=== PATIENT | male | born 1965 | race African-American/Black ===

== ENCOUNTER 2016-04-21 13:05 | Emergency (ER) | payer MEDICARE, OTHER ==
[~2016-04-21] VITALS: Ht 165.1 cm; Wt 83.9 kg
--- NOTE | 2016-04-21 13:25 | Emergency Room Report ---
History of Present Illness General Chief Complaint: Lower Back Pain or Injury Source: Patient Present Illness HPI 50 YO male presents to the ED Pt. presents to the ED c/o right sided upper back pain that radiates down the right side of the back described as "soreness, and tightness" x 2 weeks. onset after lifting heavy objects. Denies trauma or fall. Patient denies incontinence or weakness/paresthesias of the lower extremities. Patient reports pain exacerbated upon bending forward. History of cancer recent spinal procedures. he denies nausea, vomiting, fevers, chills or erythema. Patient states pain is 10 out of 10 in severity and is not relieved by his narcotic pain medications. he denies midline back pain or tenderness. Allergies: Coded Allergies: No Known Allergies (Unverified , 04/21/16) Patient History Past Medical History: see triage record Past Surgical History: none Pertinent Family History: none Immunizations: UTD Reviewed Nursing Documentation: PMH: Agreed, PSxH: Agreed Nursing Documentation-PMH Past Medical History: No History, Except For Hx Hypertension: Yes Review of Systems All Other Systems: negative except mentioned in HPI Physical Exam Vital Signs Date Time Temp Pulse Resp B/P Pulse Ox O2 Delivery O2 Flow Rate FiO2 04/21/16 13:09 98.2 74 16 132/74 95 Room Air Sp02 EP Interpretation: reviewed, normal General Appearance: no apparent distress, alert, GCS 15, non-toxic Head: normocephalic, atraumatic Eyes: bilateral eye PERRL, bilateral eye normal inspection ENT: hearing grossly normal, normal pharynx, no angioedema, normal voice Neck: full range of motion, no meningismus, no bony tend, supple/symm/no masses Respiratory: chest non-tender, lungs clear, normal breath sounds, speaking full sentences Cardiovascular #1: regular rate, rhythm, no edema Gastrointestinal: non tender, soft, no guarding, no rebound Rectal: deferred Genitourinary: normal inspection, no CVA tenderness Musculoskeletal: back normal, gait/station normal, normal range of motion, no calf tenderness, tender - right TTP to the t-spine paraspinal musculature, no midline TTP, no obvious deformities, erythema, or increased temperature to palpation. pt. has FROM with pain upon forward flexion. Neurologic: alert, oriented x3, responsive, motor strength/tone normal, sensory intact, cerebellar normal, normal gait, speech normal, other - no incontinence Psychiatric: judgement/insight normal, memory normal, mood/affect normal, no suicidal/homicidal ideation Skin: normal color, no rash, warm/dry, well hydrated Lymphatic: no adenopathy Medical Decision Making PA Attestation Dr. Goldstein is my supervising Physician whom patient management has been discussed with. Diagnostic Impression: Primary Impression: Muscle spasm of back Additional Impression: Muscle strain ER Course Pt. presents to the ED c/o right sided upper back pain that radiates down the right side of the back described as "soreness, and tightness" x 2 weeks. onset after lifting heavy objects. Ddx considered but are not limited to Fracture, dislocation, contusion, epidural abscess, Sprain/Strain/Spasm Vital signs: are WNL, pt. is afebrile H&PE are most consistent with muscle spasm, ORDERS: none required at this time. ED INTERVENTIONS: -60mg Toradol IM DISCHARGE: At this time pt. is stable for d/c to home. Will provide printed patient care instructions, and any necessary prescriptions. Care plan and follow up instructions have been discussed with the patient prior to discharge. Last Vital Signs Date Time Temp Pulse Resp B/P Pulse Ox O2 Delivery O2 Flow Rate FiO2 04/21/16 13:09 98.2 74 16 132/74 95 Room Air Disposition: HOME, SELF-CARE Condition: Stable Scripts Back Brace (BACK STABILIZER) 1 Each Each 1 EACH MC for For Pain, #1 Prov: Stephanie Ricks P.A. 04/21/16 Docusate Sodium* (COLACE*) 100 Mg Capsule 100 MG ORAL THREE TIMES A DAY, #90 CAP Prov: Stephanie Ricks P.A. 04/21/16 Ibuprofen* (MOTRIN*) 600 Mg Tablet 600 MG ORAL THREE TIMES A DAY, #30 TAB 0 Refills Prov: Stephanie Ricks P.A. 04/21/16 Cyclobenzaprine Hcl* (FLEXERIL*) 10 Mg Tablet 10 MG ORAL THREE TIMES A DAY for 7 Days, #21 TAB Prov: Stephanie Ricks P.A. 04/21/16 Patient Instructions: Muscle Cramps and Spasms, [id number], Muscle Strain, [id number] Additional Instructions: Take medications as directed. Follow up with PCP in 3-5 days Return sooner to ED if new symptoms occur, or current symptoms become worse. Do not drink alcohol, drive, or operate heavy machinery while taking Flexeril as this may cause drowsiness. - Please note that this Emergency Department Report was dictated using [employer] technology software, occasionally this can lead to erroneous entry secondary to interpretation by the dictation equipment. Stephanie Ricks Apr 21, 2016 13:25
[2016-04-21] MEDS ORDERED: CYCLOBENZAPRINE10 MG ORAL (13:26)
[2016-04-21] MEDS ORDERED: IBUPROFEN600 MG ORAL (13:26)
[2016-04-21] MEDS ORDERED: Ketorolac 60mg Inj IM ONE (13:30)
[2016-04-21] MEDS ORDERED: COLACE100 MG ORAL (13:37)
[2016-04-21] MEDS ORDERED: BACK STABILIZE1 EACH MC (13:51)
[2016-04-21 13:54] VITALS: BP 132/74
[2016-04-21 13:58] VITALS: BP 132/74
== END 2016-04-21 14:00 | disposition home or self-care (01) ==
LOC: EMR 13:50
DX: M62.830 Muscle spasm of back (principal); S29.012A Strain of muscle and tendon of back wall of thorax, initial encounter; X50.0XXA Overexertion from strenuous movement or load, initial encounter; Y93.9 Activity, unspecified; Y92.9 Unspecified place or not applicable; I10 Essential (primary) hypertension; Z85.9 Personal history of malignant neoplasm, unspecified
CPT/HCPCS: 96372; 99284

== ENCOUNTER 2017-11-13 08:23 | Emergency (ER) | payer MEDICARE, OTHER ==
[~2017-11-13] VITALS: Ht 162.6 cm; Wt 81.2 kg
[~2017-11-13 08:23] MED LIST: BACK STABILIZE1 EACH MC; COLACE100 MG ORAL; CYCLOBENZAPRINE10 MG ORAL; IBUPROFEN600 MG ORAL
[2017-11-13 08:44] VITALS: BP 138/94
[2017-11-13] MEDS ORDERED: Ketorolac 60mg Inj IM ONE (08:45)
--- NOTE | 2017-11-13 09:06 | Emergency Room Report ---
History of Present Illness General Chief Complaint: Back Pain-No Injury Source: Patient Present Illness HPI This patient has a history of a back injury. He states that he occasionally gets severe back spasms and pain that last days. He states that 2 days ago he developed a recurrence of his back pain. He states that he was unable to get relief with his home medications. He denies new injury. He denies weakness. He denies tingling or numbness. He denies loss of bowel or bladder control. He denies fever or chills. He has no other complaints. Allergies: Coded Allergies: No Known Allergies (Unverified , 04/21/16) Patient History Past Medical History: see triage record, HTN Social History: Reports: smoking; Denies: alcohol use, drug use Reviewed Nursing Documentation: PMH: Agreed; PSxH: Agreed Nursing Documentation-PMH Past Medical History: No History, Except For Hx Hypertension: Yes Review of Systems All Other Systems: negative except mentioned in HPI Physical Exam Vital Signs Date Time Temp Pulse Resp B/P (MAP) Pulse Ox O2 Delivery O2 Flow Rate FiO2 11/13/17 08:40 97.5 58 18 138/94 98 Room Air 97.5 Sp02 EP Interpretation: reviewed, normal General Appearance: no apparent distress, alert, GCS 15, non-toxic Head: normocephalic, atraumatic Eyes: bilateral eye normal inspection, bilateral eye PERRL ENT: hearing grossly normal, normal pharynx, no angioedema, normal voice Neck: full range of motion, supple/symm/no masses Respiratory: chest non-tender, lungs clear, normal breath sounds, no respiratory distress, no retraction, no accessory muscle use, speaking full sentences Cardiovascular #1: regular rate, rhythm, no edema Gastrointestinal: normal bowel sounds, non tender, soft, non-distended, no guarding, no rebound Rectal: deferred Musculoskeletal: normal range of motion, non-tender, other - Antalgic gait. More comfortable in a flexed position. Neurologic: alert, oriented x3, responsive, motor strength/tone normal, sensory intact, speech normal Psychiatric: judgement/insight normal, memory normal, mood/affect normal, no suicidal/homicidal ideation Skin: normal color, no rash, warm/dry, well hydrated Medical Decision Making Diagnostic Impression: Primary Impression: Back pain ER Course This patient has a clinical presentation consistent with mechanical back pain. There are no red flags on physical exam. The patient denies any concerning features such as trauma, fevers, night sweats, history of malignancy, pain worse at night, IV drug abuse, urinary/fecal incontinence or retention, focal weakness or change in sensation, or refractory pain. Given these pertinent negatives in the history and physical exam an emergent cause of the back pain such as epidural abscess, metastasis to bone, cauda equina syndrome, and fracture is less likely. I also doubt emergent cardiovascular cause of back pain such as aortic dissection a ruptured abdominal aortic aneurysm given patient with equal pulses in all 4 extremities with no diastolic murmur or pulsatile abdominal mass. The patient was counseled that, though unlikely, the possibility of an emergent cause of back pain may still be present and that the patient should return immediately if symptoms persist or worsen. The symptoms are reproducible with movement. Patient had a benign evaluation and neurologic examination. No emergency etiology was identified. Last Vital Signs Date Time Temp Pulse Resp B/P (MAP) Pulse Ox O2 Delivery O2 Flow Rate FiO2 11/13/17 08:49 97.5 11/13/17 08:44 58 18 138/94 98 Room Air Status: improved Disposition: HOME, SELF-CARE Condition: Improved Referrals: [facility]ERR[facility] (PCP) Patient Instructions: Back Pain, Adult Camryn Rapp DO Nov 13, 2017 09:06
[2017-11-13] MEDS ORDERED: LIDODERM700 M1 TOPIC ×2 (09:08→09:23)
[2017-11-13] MEDS ORDERED: IBUPROFEN800 MG ORAL ×2 (09:08→09:23)
[2017-11-13] MEDS ORDERED: CYCLOBENZAPRINE10 MG ORAL ×2 (09:08→09:23)
[2017-11-13] MEDS ORDERED: ACETAMINOPHEN500 M5 PO (09:08)
[2017-11-13 09:22] VITALS: BP 138/94
[2017-11-13] MEDS ORDERED: ACETAMINOPHEN500 M3 ORAL (09:23)
== END 2017-11-13 09:22 | disposition home or self-care (01) ==
LOC: EMR 08:49
DX: M54.9 Dorsalgia, unspecified (principal); I10 Essential (primary) hypertension
CPT/HCPCS: 96372; 99283

== ENCOUNTER 2019-01-31 20:32 | Emergency (ER) | payer MEDICARE, OTHER ==
[~2019-01-31] VITALS: Ht 162.6 cm; Wt 82.6 kg
[~2019-01-31 20:32] MED LIST changes: +ACETAMINOPHEN500 M3 ORAL; +ACETAMINOPHEN500 M5 PO; +IBUPROFEN800 MG ORAL; +LIDODERM700 M1 TOPIC
[2019-01-31 20:45] VITALS: BP 159/91
--- NOTE | 2019-01-31 20:45 | NUR ---
ED Nurse Note: Addendum: 01/31/19 at 2055 by QLE pt presents to ED c/o bilat CP that radiates to the upper and lwoer back x 3 days. pt reports the px 12/01. pt has a h/o GERD but states the px feels different from his GERD px. pt took his antacid [employer] without relief of symptoms. pt is also nauseated but has not vomited. pt reprots not having a BM for 2 days and that his abd feels more distended than usual. pt was seen at [facility] earlier today where blood was drawn, and an EKG was done but he left before he was diagnosed.
[2019-01-31] MEDS ORDERED: AMLODIPINE-ATO1 EAC4 ORAL (20:55)
[2019-01-31] MEDS ORDERED: ASPIR 8181 MG ORAL (20:55)
[2019-01-31] MEDS ORDERED: CALCIUM + D SO1 EACH PO (20:55)
[2019-01-31] MEDS ORDERED: PANTOPRAZOLE SO40 MG ORAL (20:55)
[2019-01-31] MEDS ORDERED: OMEPRAZOLE40 M1 ORAL (20:55)
[2019-01-31] MEDS ORDERED: TRAMADOL HCL50 MG ORAL (20:55)
[2019-01-31] MEDS ORDERED: BENAZEPRIL-HCT1 EAC1 ORAL (20:55)
[2019-01-31] MEDS ORDERED: ATORVASTATIN CA40 MG ORAL (20:55)
[2019-01-31 21:10] LABS: BASOPHILS % (AUTO) 1.3 % (0.0-2.0); EOSINOPHILS % (AUTO) 1.8 % (0.0-3.0); HEMATOCRIT 42.5 % (42.0-52.0); HEMOGLOBIN 15.8 G/DL (14.2-18.0); LYMPHOCYTES % (AUTO) 34.6 % (20.0-45.0); MEAN CORPUSCULAR VOLUME 84 FL (80-99); MONOCYTES % (AUTO) 7.4 % (1.0-10.0); NEUTROPHILS % (AUTO) 54.9 % (45.0-75.0); PLATELET COUNT 219 K/UL (150-450); RED BLOOD COUNT 5.08 M/UL (4.70-6.10); RED CELL DISTRIBUTION WIDTH 10.8 % (11.6-14.8); WHITE BLOOD COUNT 13.4 K/UL (4.8-10.8)
[2019-01-31 21:17] LABS: INR 0.9 (0.9-1.1)
[2019-01-31 21:19] LABS: ANION GAP 8 mmol/L (5-15); BLOOD UREA NITROGEN 13 mg/dL (7-18); CALCIUM 9.2 MG/DL (8.5-10.1); CARBON DIOXIDE 31 MMOL/L (21-32); CHLORIDE 104 MMOL/L (98-107); CREATININE 1.1 MG/DL (0.55-1.30); POTASSIUM 3.9 MMOL/L (3.5-5.1); SODIUM 142 MMOL/L (136-145)
[2019-01-31] MEDS ORDERED: Omnipaque-300 100ml vial INJ PRN (21:30)
[2019-01-31 21:31] LABS: ALANINE AMINOTRANSFERASE 26 U/L (12-78); ALBUMIN/GLOBULIN RATIO 1.3 (1.0-2.7); ALKALINE PHOSPHATASE 82 U/L (46-116); ASPARTATE AMINO TRANSFERASE 14 U/L (15-37); BILIRUBIN,TOTAL 0.5 MG/DL (0.2-1.0)
--- NOTE | 2019-01-31 21:36 | NUR ---
ED Nurse Note: pt transported to CT via wheelchair, VSS, no acute distress noted at this time.
--- NOTE | 2019-01-31 21:49 | NUR ---
ED Nurse Note: pt returned from CT, fluids are running. pt verbalized "feeling beter." still c/o bilat back px but reports that being chronic px for him that he usually receives steroid injections for.
--- NOTE | 2019-01-31 22:50 | Diagnostic Imaging Report ---
Clinical Indication: Abdominal pain, constipation, difficulty urinating for 2 days Technique: No oral contrast utilized, per emergency room physician request IV administration nonionic contrast. Venous phase spiral acquisition obtained through the abdomen and pelvis. Multiplanar reconstructions were generated. Total dose length product 1151 mGycm. CTDIvol(s) 20 mGy. Dose reduction achieved using automated exposure control Comparison: none Findings: The appendix is normal. There is no evidence of colonic diverticulosis or diverticulitis. No small bowel distention. No free or loculated intraperitoneal gas or fluid is evident. The distal esophagus, stomach, duodenum are unremarkable. The liver demonstrates a few subcentimeter low-attenuation lesions which are too small to characterize. The gallbladder, bile ducts, pancreas, spleen, adrenals are unremarkable. There is a tiny accessory splenule. The kidneys demonstrate subcentimeter low-attenuation lesions bilaterally which are too small to characterize. No renal or ureteral calculi, hydronephrosis, or hydroureter. The prostate is enlarged. The bladder demonstrates equivocal mild wall thickening. No pelvic mass or adenopathy. No retroperitoneal or mesenteric mass or adenopathy. The included lung bases demonstrate posterior dependent atelectatic changes. The bones demonstrate degenerative spondylosis changes. Impression: Prostatomegaly Equivocal mild bladder wall thickening, probably artifact of under distention but mild cystitis changes also possible No definite acute process otherwise Subcentimeter low-attenuation liver and renal lesions, too small to characterize, most likely benign simple cysts. No further follow-up necessary Mild degenerative spondylosis, posterior dependent pulmonary atelectatic changes incidentally noted This agrees with the preliminary interpretation provided overnight by [facility]erad[facility] service. The CT scanner at [facility] is accredited by the [employer] and the scans are performed using protocols designed to limit radiation exposure to as low as reasonably achievable to attain images of sufficient resolution adequate for diagnostic evaluation.
[2019-01-31] MEDS ORDERED: COLACE100 MG ORAL (23:13)
[2019-01-31] MEDS ORDERED: MAGNESIUM CITR296 M1 PO (23:13)
[2019-01-31] MEDS ORDERED: RANITIDINE HCL150 MG ORAL (23:13)
[2019-01-31 23:15] VITALS: BP 159/91
--- NOTE | 2019-01-31 23:15 | NUR ---
ER DISCHARGE NOTE: Patient is cleared to be discharged per ERMD, pt is aox4, on room air, with stable vital signs. pt was given dc and prescription instructions, pt was able to verbalize understanding, pt id band and iv site removed without complications. pt is able to ambulate with steady gait. pt took all belongings.
--- NOTE | 2019-02-01 01:25 | Emergency Room Report ---
History of Present Illness General Chief Complaint: Chest Pain Source: Patient Present Illness HPI 53-year-old male presents ED for evaluation. Complaining of epigastric pain. started tonight. Pain is burning, 7 out of 10, radiating through the chest. States that he also feels nauseous. States that he has not had a bowel movement in the last 2 days. Denies abdominal pain. Denies any prior surgeries. No other aggravating relieving factors. Denies any other associated symptoms Allergies: Coded Allergies: No Known Allergies (Unverified , 04/21/16) Patient History Past Medical History: HTN, CVA/TIA Past Surgical History: none Pertinent Family History: none Social History: Denies: smoking, alcohol use, drug use Immunizations: UTD Reviewed Nursing Documentation: PMH: Agreed; PSxH: Agreed Nursing Documentation-PMH Hx Cardiac Problems: Yes - cholesterol Hx Hypertension: Yes Hx Cerebrovascular Accident: Yes Review of Systems All Other Systems: negative except mentioned in HPI Physical Exam Vital Signs Date Time Temp Pulse Resp B/P (MAP) Pulse Ox O2 Delivery O2 Flow Rate FiO2 01/31/19 20:35 97.9 85 16 159/91 (113) 96 Room Air Sp02 EP Interpretation: reviewed, normal General Appearance: no apparent distress, alert, GCS 15, non-toxic Head: normocephalic, atraumatic Eyes: bilateral eye normal inspection, bilateral eye PERRL ENT: hearing grossly normal, normal pharynx, no angioedema, normal voice Neck: full range of motion, supple/symm/no masses Respiratory: chest non-tender, lungs clear, normal breath sounds, speaking full sentences Cardiovascular #1: regular rate, rhythm, no edema Cardiovascular #2: 2+ carotid (R), 2+ carotid (L), 2+ radial (R), 2+ radial (L) , 2+ dorsalis pedis (R), 2+ dorsalis pedis (L) Gastrointestinal: normal bowel sounds, soft, non-distended, no guarding, no rebound, tenderness - epigastric Rectal: deferred Genitourinary: normal inspection, no CVA tenderness Musculoskeletal: back normal, normal range of motion, gait/station normal, non- tender Neurologic: alert, motor strength/tone normal, oriented x3, sensory intact, responsive, speech normal Psychiatric: judgement/insight normal, memory normal, mood/affect normal, no suicidal/homicidal ideation Reflexes: 3+ bicep (R), 3+ bicep (L), 3+ tricep (R), 3+ tricep (L), 3+ knee (R) , 3+ knee (L) Lymphatic: no adenopathy Medical Decision Making Diagnostic Impression: Primary Impression: Gastritis Qualified Codes: K29.00 - Acute gastritis without bleeding Additional Impression: Constipation Qualified Codes: K59.00 - Constipation, unspecified ER Course Hospital Course 53 yo M presents to ED c/o epigastric pain. no BM x 2 days Differential diagnosis includes- ACS, SBO, gastritis Clinical course Patient placed on stretcher. After initial history and physical I ordered labs , IV fluids, EKG, CXR, CT Labs - no leukocytosis, electrolytes ok, trop negative EKG - NSR, no acute ischemic changes interpreted by me CXR - no acute process CT scan shows no acute pathology there is significant fecal impaction on CT Discussed findings with patient. Will discharge to home. Troponin negative. Normal EKG. Vitals stable. Safe for discharge for close outpatient follow-up. States he has a PMD I feel this is a highly complex case requiring extensive working including EKG/ Rhythm strip, Xray/CT/US, Blood/urine lab work, repeat exams while in ED, and administration of strong opiates/narcotics for pain control, admission to hospital or close patient follow up. Diagnosis - gastritis, constipation Stable and discharged to home with Rx Colace, Mag citrate, zantac. Followup with PMD. Return to ED if symptoms recur or worsen Labs Test 01/31/19 20:45 White Blood Count 13.4 K/UL (4.8-10.8) Red Blood Count 5.08 M/UL (4.70-6.10) Hemoglobin 15.8 G/DL (14.2-18.0) Hematocrit 42.5 % (42.0-52.0) Mean Corpuscular Volume 84 FL (80-99) Mean Corpuscular Hemoglobin 31.1 PG (27.0-31.0) Mean Corpuscular Hemoglobin Concent 37.2 G/DL (32.0-36.0) Red Cell Distribution Width 10.8 % (11.6-14.8) Platelet Count 219 K/UL (150-450) Mean Platelet Volume 5.3 FL (6.5-10.1) Neutrophils (%) (Auto) 54.9 % (45.0-75.0) Lymphocytes (%) (Auto) 34.6 % (20.0-45.0) Monocytes (%) (Auto) 7.4 % (1.0-10.0) Eosinophils (%) (Auto) 1.8 % (0.0-3.0) Basophils (%) (Auto) 1.3 % (0.0-2.0) Prothrombin Time 9.4 SEC (9.30-11.50) Prothromb Time International Ratio 0.9 (0.9-1.1) Activated Partial Thromboplast Time 29 SEC (23-33) Sodium Level 142 MMOL/L (136-145) Potassium Level 3.9 MMOL/L (3.5-5.1) Chloride Level 104 MMOL/L (98-107) Carbon Dioxide Level 31 MMOL/L (21-32) Anion Gap 8 mmol/L (5-15) Blood Urea Nitrogen 13 mg/dL (7-18) Creatinine 1.1 MG/DL (0.55-1.30) Estimat Glomerular Filtration Rate > 60 mL/min (>60) Glucose Level 95 MG/DL (74-106) Calcium Level 9.2 MG/DL (8.5-10.1) Total Bilirubin 0.5 MG/DL (0.2-1.0) Aspartate Amino Transf (AST/SGOT) 14 U/L (15-37) Alanine Aminotransferase (ALT/SGPT) 26 U/L (12-78) Alkaline Phosphatase 82 U/L (46-116) Troponin I 0.000 ng/mL (0.000-0.056) Pro-B-Type Natriuretic Peptide 27 pg/mL (0-125) Total Protein 7.2 G/DL (6.4-8.2) Albumin 4.0 G/DL (3.4-5.0) Globulin 3.2 g/dL Albumin/Globulin Ratio 1.3 (1.0-2.7) Lipase 176 U/L (73-393) EKG Diagnostic Results Rate: normal Rhythm: NSR ST Segments: no acute changes ASA given to the pt in ED: No Rhythm Strip Diag. Results EP Interpretation: yes Rhythm: NSR, no PVC's, no ectopy Chest X-Ray Diagnostic Results Chest X-Ray Diagnostic Results : Chest X-Ray Ordered: Yes # of Views/Limited/Complete: 1 View Indication: Chest Pain EP Interpretation: Yes Interpretation: no consolidation, no effusion, no pneumothorax, no acute cardiopulmonary disease Impression: No acute disease Electronically Signed by: Electronically signed by Zac Prescott MD CT/MRI/US Diagnostic Results CT/MRI/US Diagnostic Results : Imaging Test Ordered: CT A/P Impression CT ABDOMEN & PELVIS With Contrast: Prostate is mildly enlarged. Evaluation of urinary bladder limited by underdistention and mild mural thickening/cystitis not excluded. Normal appendix. No free air or free fluid. No bowel obstruction. Atherosclerotic calcifications of aorta and its branches. Subcentimeter hypodensities in left lobe of liver, likely cysts. Renal hypodensities also likely represent cysts. Solid organs otherwise unremarkable Degenerative changes of lumbar spine. Last Vital Signs Date Time Temp Pulse Resp B/P (MAP) Pulse Ox O2 Delivery O2 Flow Rate FiO2 01/31/19 23:15 97.9 88 16 159/91 96 Room Air Status: improved Disposition: HOME, SELF-CARE Condition: Stable Scripts Magnesium Citrate (MAGNESIUM CITRATE) 296 Ml Solution 150 ML PO DAILY for 2 Days, #296 ML Prov: Zac Prescott MD 01/31/19 Docusate Sodium* (COLACE*) 100 Mg Capsule 100 MG ORAL THREE TIMES A DAY, #30 CAP Prov: Zac Prescott MD 01/31/19 Ranitidine Hcl* (ZANTAC*) 150 Mg Tablet 150 MG ORAL TWICE A DAY, #30 TAB Prov: Zac Prescott MD 01/31/19 Patient Instructions: Gastritis, Adult, [id number], Constipation, Adult, Easy -to-Read Zac Prescott MD Feb 01, 2019 01:25
--- NOTE | 2019-02-01 11:46 | Diagnostic Imaging Report ---
Indication: Chest pain Technique: One view of the chest Comparison: none Findings: There is some atelectasis at the left lung base. The lungs and pleural spaces are otherwise clear. The heart size is normal Impression: Minimal left basilar atelectasis. No acute process otherwise
--- NOTE | 2019-02-01 15:21 | Cardiology Report ---
APPROVED REPORT EKG Measurement Heart [id number] Normal sinus rhythm with sinus arrhythmia Normal ECG
== END 2019-01-31 23:15 | disposition home or self-care (01) ==
LOC: EMR 21:00
DX: K29.00 Acute gastritis without bleeding (principal); K59.00 Constipation, unspecified; E78.00 Pure hypercholesterolemia, unspecified; I10 Essential (primary) hypertension; Z86.73 Personal history of transient ischemic attack (TIA), and cerebral infarction without residual deficits
CPT/HCPCS: 36415; 71045; 74177; 80053; 83690; 83880; 84484; 85025; 85610; 85730; 93005; 96374; 96375; 99284; J2405; J7040; Q9967; S0028

== ENCOUNTER 2019-02-02 00:46 | Emergency (ER) | payer MEDICARE, OTHER ==
[~2019-02-02] VITALS: Ht 162.6 cm; Wt 82.6 kg
[~2019-02-02 00:46] MED LIST changes: +AMLODIPINE-ATO1 EAC4 ORAL; +ASPIR 8181 MG ORAL; +ATORVASTATIN CA40 MG ORAL; +BENAZEPRIL-HCT1 EAC1 ORAL; +CALCIUM + D SO1 EACH PO; +MAGNESIUM CITR296 M1 PO; +OMEPRAZOLE40 M1 ORAL; +PANTOPRAZOLE SO40 MG ORAL; +RANITIDINE HCL150 MG ORAL; +TRAMADOL HCL50 MG ORAL
[2019-02-02 00:53] VITALS: BP 126/87
--- NOTE | 2019-02-02 00:53 | NUR ---
ED Nurse Note: wALK-IN PATIENT PRESENTS WITH COMPLAINTS OF LEFT LOWER BACK PAIN INTERMITTENT AND SHARP. PATIENT WAS SEEN YESTERDAY, UNABL ETO GIVE A URINE SAMPLE, WATER REQUESTED, AND ACCOMODATED. WILL CONTINUE TO MONITOR FOR URINE SPECIMEN.
--- NOTE | 2019-02-02 01:05 | NUR ---
ED Nurse Note: ERMD at bedside.
[2019-02-02] MEDS ORDERED: Ketorolac 30mg Inj IV ONE (01:30)
--- NOTE | 2019-02-02 01:35 | Emergency Room Report ---
History of Present Illness General Chief Complaint: Pain Source: Medical Record Present Illness HPI Patient 53-year-old male presents after increased left-sided flank pain. Patient reports have increased pain with movement. Pain is intermittent in nature. He had recent ER visit yesterday. He had prior history of prostate disease. He had a recent endoscopy and was told that he had prior history of acid reflux. He is currently taking multiple medications. He denies any recent trauma.Patient denies any hematemesis or bloody stools. He denies any change in urination. Allergies: Coded Allergies: No Known Allergies (Unverified , 04/21/16) Patient History Past Medical History: see triage record Reviewed Nursing Documentation: PMH: Agreed Nursing Documentation-PMH Past Medical History: No History, Except For Hx Cardiac Problems: Yes - cholesterol Hx Hypertension: Yes Hx Cerebrovascular Accident: Yes Review of Systems All Other Systems: negative except mentioned in HPI Physical Exam Vital Signs Date Time Temp Pulse Resp B/P (MAP) Pulse Ox O2 Delivery O2 Flow Rate FiO2 02/02/19 00:53 97.9 81 20 126/87 (100) 98 Room Air Sp02 EP Interpretation: reviewed, normal General Appearance: normal inspection, well appearing, no apparent distress, alert, GCS 15 Head: atraumatic ENT: normal ENT inspection, hearing grossly normal, normal voice Neck: normal inspection, full range of motion, supple, no bony tend Respiratory: normal inspection, lungs clear, normal breath sounds, no respiratory distress, no retraction, no wheezing Cardiovascular #1: regular rate, rhythm, no edema Gastrointestinal: normal inspection, normal bowel sounds, non tender, soft, no guarding, no hernia Genitourinary: no CVA tenderness Musculoskeletal: normal inspection, decreased range of motion Neurologic: alert, motor strength/tone normal, gastroenterologist III-XII nml as tested, oriented x3, responsive, speech normal, normal inspection Psychiatric: normal inspection, judgement/insight normal, mood/affect normal Medical Decision Making Diagnostic Impression: Primary Impression: Low back pain ER Course Patient presented for low back pain. Differential diagnosis included but was not limited to herniated disc, cauda equina syndrome, abdominal aortic aneurysm , perforated ulcer, spinal epidural abscess, spinal stenosis, lumbar fracture, metastatic lesion, pyelonephritis. He had recent CT imaging which showed some evidence of degenerative changes to his lumbar spine. Prostate was also noted to be large. Urinalysis showed some slight hematuria. Patient was given prescription for symptomatic treatment. Patient was advised to recheck with primary care physician in 1-2 days. Patient to return for any worsening, pain, fever, incontinence or other concerns. Labs Test 02/02/19 01:30 White Blood Count 13.3 K/UL (4.8-10.8) Red Blood Count 5.51 M/UL (4.70-6.10) Hemoglobin 16.5 G/DL (14.2-18.0) Hematocrit 47.3 % (42.0-52.0) Mean Corpuscular Volume 86 FL (80-99) Mean Corpuscular Hemoglobin 29.9 PG (27.0-31.0) Mean Corpuscular Hemoglobin Concent 34.8 G/DL (32.0-36.0) Red Cell Distribution Width 12.2 % (11.6-14.8) Platelet Count 239 K/UL (150-450) Mean Platelet Volume 5.1 FL (6.5-10.1) Neutrophils (%) (Auto) 70.5 % (45.0-75.0) Lymphocytes (%) (Auto) 22.2 % (20.0-45.0) Monocytes (%) (Auto) 5.8 % (1.0-10.0) Eosinophils (%) (Auto) 1.0 % (0.0-3.0) Basophils (%) (Auto) 0.6 % (0.0-2.0) Urine Color Yellow Urine Appearance Clear Urine pH 5 (4.5-8.0) Urine Specific [place] 1.025 (1.005-1.035) Urine Protein Negative (NEGATIVE) Urine Glucose (UA) Negative (NEGATIVE) Urine Ketones Negative (NEGATIVE) Urine Blood 2+ (NEGATIVE) Urine Nitrite Negative (NEGATIVE) Urine Bilirubin Negative (NEGATIVE) Urine Urobilinogen Normal MG/DL (0.0-1.0) Urine Leukocyte Esterase Negative (NEGATIVE) Urine RBC 2-4 /HPF (0 - 0) Urine WBC 0 /HPF (0 - 0) Urine Squamous Epithelial Cells None /LPF (NONE/OCC) Urine Bacteria None /HPF (NONE) Sodium Level 137 MMOL/L (136-145) Potassium Level 3.9 MMOL/L (3.5-5.1) Chloride Level 101 MMOL/L (98-107) Carbon Dioxide Level 28 MMOL/L (21-32) Anion Gap 8 mmol/L (5-15) Blood Urea Nitrogen 12 mg/dL (7-18) Creatinine 1.1 MG/DL (0.55-1.30) Estimat Glomerular Filtration Rate > 60 mL/min (>60) Glucose Level 124 MG/DL (74-106) Calcium Level 9.7 MG/DL (8.5-10.1) Total Bilirubin 0.7 MG/DL (0.2-1.0) Aspartate Amino Transf (AST/SGOT) 14 U/L (15-37) Alanine Aminotransferase (ALT/SGPT) 23 U/L (12-78) Alkaline Phosphatase 77 U/L (46-116) Troponin I 0.006 ng/mL (0.000-0.056) Total Protein 7.7 G/DL (6.4-8.2) Albumin 3.8 G/DL (3.4-5.0) Globulin 3.9 g/dL Albumin/Globulin Ratio 1.0 (1.0-2.7) Lipase 174 U/L (73-393) Last Vital Signs Date Time Temp Pulse Resp B/P (MAP) Pulse Ox O2 Delivery O2 Flow Rate FiO2 02/02/19 00:53 97.9 86 20 126/87 98 Room Air Status: improved Disposition: HOME, SELF-CARE Condition: Stable Scripts Cephalexin* (KEFLEX*) 500 Mg Capsule 500 MG ORAL EVERY 6 HOURS, #28 CAP Prov: Live Morton MD 02/02/19 Diclofenac Sodium (VOLTAREN) 100 Gm Gel..gram. 5 GM TP DAILY for pain, #100 GM Prov: Live Morton MD 02/02/19 Live Morton MD Feb 02, 2019 01:35
[2019-02-02 01:46] LABS: APPEARANCE,URINE CLEAR; BASOPHILS % (AUTO) 0.6 % (0.0-2.0); BILIRUBIN, URINE NEGATIVE (NEGATIVE); GLUCOSE, URINE (UA) NEGATIVE (NEGATIVE); HEMATOCRIT 47.3 % (42.0-52.0); HEMOGLOBIN 16.5 G/DL (14.2-18.0); KETONES,URINE NEGATIVE (NEGATIVE); LEUKOCYTE ESTERASE ,URINE NEGATIVE (NEGATIVE); LYMPHOCYTES % (AUTO) 22.2 % (20.0-45.0); MEAN CORPUSCULAR VOLUME 86 FL (80-99); MONOCYTES % (AUTO) 5.8 % (1.0-10.0); NEUTROPHILS % (AUTO) 70.5 % (45.0-75.0); NITRITE,URINE NEGATIVE (NEGATIVE); PH,URINE 5 (4.5-8.0); PLATELET COUNT 239 K/UL (150-450); PROTEIN,URINE NEGATIVE (NEGATIVE); RED BLOOD COUNT 5.51 M/UL (4.70-6.10); RED CELL DISTRIBUTION WIDTH 12.2 % (11.6-14.8); UROBILINOGEN,URINE NORMAL MG/DL (0.0-1.0); WHITE BLOOD COUNT 13.3 K/UL (4.8-10.8)
[2019-02-02 01:49] LABS: COLOR,URINE YELLOW
[2019-02-02 01:56] LABS: ANION GAP 8 mmol/L (5-15); BLOOD UREA NITROGEN 12 mg/dL (7-18); CALCIUM 9.7 MG/DL (8.5-10.1); CARBON DIOXIDE 28 MMOL/L (21-32); CHLORIDE 101 MMOL/L (98-107); CREATININE 1.1 MG/DL (0.55-1.30); POTASSIUM 3.9 MMOL/L (3.5-5.1); SODIUM 137 MMOL/L (136-145)
--- NOTE | 2019-02-02 01:56 | NUR ---
ED Nurse Note: pATIENT REPORTS RELIEF OF PAIN AND HAS NO COMPLAINTS, PATIENT IS CONFIDENT THAT HE CAN SLEEP NOW.
[2019-02-02 02:01] LABS: ALANINE AMINOTRANSFERASE 23 U/L (12-78); ALBUMIN 3.8 G/DL (3.4-5.0); ALKALINE PHOSPHATASE 77 U/L (46-116); ASPARTATE AMINO TRANSFERASE 14 U/L (15-37); BILIRUBIN,TOTAL 0.7 MG/DL (0.2-1.0)
[2019-02-02] MEDS ORDERED: VOLTAREN100 G1 TP (02:19)
[2019-02-02] MEDS ORDERED: CEPHALEXIN500 MG ORAL (02:20)
[2019-02-02 02:27] VITALS: BP 126/87
[2019-02-03] MEDS ORDERED: VALIUM5 MG ORAL (15:11)
== END 2019-02-02 02:24 | disposition home or self-care (01) ==
LOC: EMR 01:30
DX: M54.5 Low back pain (principal); I10 Essential (primary) hypertension; Z86.73 Personal history of transient ischemic attack (TIA), and cerebral infarction without residual deficits
CPT/HCPCS: 36415; 80053; 81003; 83690; 84484; 85025; 96374; 99284; J1885

== ENCOUNTER 2019-02-03 12:16 | Emergency (ER) | payer MEDICARE, OTHER ==
[~2019-02-03] VITALS: Ht 175.3 cm; Wt 79.4 kg
[~2019-02-03 12:16] MED LIST changes: +CEPHALEXIN500 MG ORAL; +VOLTAREN100 G1 TP
--- NOTE | 2019-02-03 12:38 | NUR ---
ED Nurse Note: received pt from triage via wheelchair, pt c/o lower back pain for past five days, pt states he was sitting on the couch and watching tv when the pain started but denies any injuries or strenous activity. pt reports pain stays in lower back most time but occasionally has upper back pain as well, pt states he was in the ED x 2 but nothing is helping his pain and when pt went to go see the primary doctor, pcp recommended pt to go to ED. pt aA&ox4, gcs=15, pt vss, resp even and unlabored on RA, pt states he is able to ambulate w/ no assist normally but ever since pain started it is difficult to walk. will cont monitor. safety measures in place.
[2019-02-03 12:41] VITALS: BP 146/86
[2019-02-03] MEDS ORDERED: Ketorolac 30mg Inj IV ONE (13:15)
--- NOTE | 2019-02-03 13:35 | NUR ---
ED Nurse Note: Patient went to MRI.
[2019-02-03 13:39] LABS: BASOPHILS % (AUTO) 0.8 % (0.0-2.0); EOSINOPHILS % (AUTO) 0.9 % (0.0-3.0); HEMATOCRIT 44.4 % (42.0-52.0); HEMOGLOBIN 15.4 G/DL (14.2-18.0); LYMPHOCYTES % (AUTO) 27.4 % (20.0-45.0); MEAN CORPUSCULAR VOLUME 86 FL (80-99); MONOCYTES % (AUTO) 3.7 % (1.0-10.0); NEUTROPHILS % (AUTO) 67.1 % (45.0-75.0); PLATELET COUNT 243 K/UL (150-450); RED BLOOD COUNT 5.14 M/UL (4.70-6.10); RED CELL DISTRIBUTION WIDTH 11.8 % (11.6-14.8); WHITE BLOOD COUNT 12.3 K/UL (4.8-10.8)
--- NOTE | 2019-02-03 13:55 | Emergency Room Report ---
History of Present Illness General Chief Complaint: Pain Source: Patient Present Illness HPI This patient states that he has been to the emergency department 3 times this week. Initially he presented a few days ago for epigastric pain and constipation. He states he continues to be constipated although he did have one bowel movement and the pain in his abdomen has resolved, however, he was seen the next day for severe back pain. Pain comes in waves and is spasm-like. It is aggravated by any movement of his torso. It is located in his mid back. He denies weakness. He denies tingling or numbness. He denies loss of bowel or bladder control. He denies fever or chills. He states he does have a history of back pain but never to this level or severity. He was seen by his primary care physician today in the clinic and was sent to the emergency department for further evaluation. Allergies: Coded Allergies: No Known Allergies (Unverified , 04/21/16) Patient History Past Medical History: see triage record, HTN, GERD, other - HLP, Back pain Social History: Denies: smoking, alcohol use, drug use Reviewed Nursing Documentation: PMH: Agreed; PSxH: Agreed Nursing Documentation-PMH Past Medical History: No History, Except For Hx Cardiac Problems: Yes - cholesterol Hx Hypertension: Yes Hx Cerebrovascular Accident: Yes Review of Systems All Other Systems: negative except mentioned in HPI Physical Exam Vital Signs Date Time Temp Pulse Resp B/P (MAP) Pulse Ox O2 Delivery O2 Flow Rate FiO2 02/03/19 12:23 97.9 91 18 135/88 (104) 98 Room Air Sp02 EP Interpretation: reviewed, normal General Appearance: no apparent distress, alert, GCS 15, non-toxic Head: normocephalic, atraumatic Eyes: bilateral eye normal inspection, bilateral eye PERRL ENT: hearing grossly normal, normal pharynx, no angioedema, normal voice Neck: full range of motion, supple/symm/no masses Respiratory: chest non-tender, lungs clear, normal breath sounds, no respiratory distress, no retraction, no accessory muscle use, speaking full sentences Cardiovascular #1: regular rate, rhythm, no edema Gastrointestinal: normal bowel sounds, non tender, soft, non-distended, no guarding, no rebound Rectal: deferred Musculoskeletal: gait/station normal, tender - +exquistely TTP mid paraspinal m. Severe spasm with any movement. 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 The patient symptoms are severe and recurrent. He has been to the emergency department 3 times this week. His symptoms are unrelenting. The patient underwent MRI thoracic and lumbar spine given the severity of symptoms and lack of response to treatment. This showed no acute findings. I will place the patient on a laxative as requested for his constipation. I will also place him on Valium for muscle spasm. He has tramadol and so he can continue using the tramadol. He was educated that he may need to undergo rehab and that he should follow-up with his primary care physician. He indicated understanding and intention to do so. Laboratory Tests Test 02/03/19 13:25 White Blood Count 12.3 K/UL (4.8-10.8) H Red Blood Count 5.14 M/UL (4.70-6.10) Hemoglobin 15.4 G/DL (14.2-18.0) Hematocrit 44.4 % (42.0-52.0) Mean Corpuscular Volume 86 FL (80-99) Mean Corpuscular Hemoglobin 30.0 PG (27.0-31.0) Mean Corpuscular Hemoglobin Concent 34.8 G/DL (32.0-36.0) Red Cell Distribution Width 11.8 % (11.6-14.8) Platelet Count 243 K/UL (150-450) Mean Platelet Volume 5.0 FL (6.5-10.1) L Neutrophils (%) (Auto) 67.1 % (45.0-75.0) Lymphocytes (%) (Auto) 27.4 % (20.0-45.0) Monocytes (%) (Auto) 3.7 % (1.0-10.0) Eosinophils (%) (Auto) 0.9 % (0.0-3.0) Basophils (%) (Auto) 0.8 % (0.0-2.0) Sodium Level 139 MMOL/L (136-145) Potassium Level 3.7 MMOL/L (3.5-5.1) Chloride Level 101 MMOL/L (98-107) Carbon Dioxide Level 28 MMOL/L (21-32) Anion Gap 10 mmol/L (5-15) Blood Urea Nitrogen 20 mg/dL (7-18) H Creatinine 1.2 MG/DL (0.55-1.30) Estimate Glomerular Filtration Rate > 60 mL/min (>60) Glucose Level 156 MG/DL (74-106) H Calcium Level 9.1 MG/DL (8.5-10.1) Total Bilirubin 0.5 MG/DL (0.2-1.0) Aspartate Amino Transferase (AST) 13 U/L (15-37) L Alanine Aminotransferase (ALT) 26 U/L (12-78) Alkaline Phosphatase 73 U/L (46-116) Total Protein 7.3 G/DL (6.4-8.2) Albumin 3.6 G/DL (3.4-5.0) Globulin 3.7 g/dL Albumin/Globulin Ratio 1.0 (1.0-2.7) CT/MRI/US Diagnostic Results CT/MRI/US Diagnostic Results : Imaging Test Ordered: MRI T-spine, L-spine Impression No acute findings identified on the MRI of the thoracic and lumbar spine. See official report in the electronic medical record. Last Vital Signs Date Time Temp Pulse Resp B/P (MAP) Pulse Ox O2 Delivery O2 Flow Rate FiO2 02/03/19 12:41 97.9 84 18 146/86 100 Room Air Status: improved Disposition: HOME, SELF-CARE Condition: Improved Referrals: NON PHYSICIAN (PCP) Camryn Rapp DO Feb 03, 2019 13:55
[2019-02-03 14:05] LABS: ANION GAP 10 mmol/L (5-15); BLOOD UREA NITROGEN 20 mg/dL (7-18); CALCIUM 9.1 MG/DL (8.5-10.1); CARBON DIOXIDE 28 MMOL/L (21-32); CHLORIDE 101 MMOL/L (98-107); CREATININE 1.2 MG/DL (0.55-1.30); POTASSIUM 3.7 MMOL/L (3.5-5.1); SODIUM 139 MMOL/L (136-145)
[2019-02-03 14:08] LABS: ALANINE AMINOTRANSFERASE 26 U/L (12-78); ALBUMIN 3.6 G/DL (3.4-5.0); ALKALINE PHOSPHATASE 73 U/L (46-116); ASPARTATE AMINO TRANSFERASE 13 U/L (15-37); BILIRUBIN,TOTAL 0.5 MG/DL (0.2-1.0)
[2019-02-03 14:41] VITALS: BP 141/80
--- NOTE | 2019-02-03 14:41 | NUR ---
ED Nurse Note: Patient back from MRI.
--- NOTE | 2019-02-03 14:45 | NUR ---
ED Nurse Note: Patient feeling much better, states his pain is now 0/10.
--- NOTE | 2019-02-03 14:49 | Diagnostic Imaging Report ---
Indication: Pain in mid back pain, pain to left side of the hip and radiating down the left side Technique: Sagittal T1 and T2 fast spin echo, sagittal STIR, axial T1 and T2 fast spin-echo images of the lumbar spine Comparison: none Findings: Bony alignment is normal. Vertebral body heights are preserved. Vertebral marrow signal is normal. Conus medullaris terminates at the T12-L1 disc level. At L2-3, there is very mild degenerative disc narrowing and very mild circumferential annular bulge. No significant neural foraminal narrowing or spinal canal stenosis is demonstrated. At L3-4, there is mild degenerative disc narrowing. There is circumferential annular bulge. No significant spinal canal stenosis is demonstrated. This may result in mild neural compromise narrowing on the right. There is very mild bilateral facet arthrosis at this level. At L4-5, there is minimal degenerative disc narrowing. There is mild circumferential annular bulge. This does not result in any significant narrowing of the spinal canal. It may result in mild bilateral neural foraminal compromise there is bilateral facet arthrosis At the remaining disc levels, no significant disc bulge or protrusion, spinal stenosis, or neural foraminal stenosis. Included extra spinal soft tissues are unremarkable. Impression: No acute abnormality Mild degenerative change, as detailed on level by level basis above
--- NOTE | 2019-02-03 15:08 | Diagnostic Imaging Report ---
Indication: Low to mid back pain radiating to left side Technique: Sagittal T1 fast spin echo, sagittal T2 fast echo, sagittal STIR, axial T2 fast spin echo images were obtained through the thoracic spine Comparison: none Findings: Except for a few scattered Modic type II and minimal Modic type I degenerative changes, the vertebral marrow signal is normal. The bony alignment is normal. The vertebral body heights are preserved. The intrinsic cord signal is normal. At T2-3, there is mild central and right paracentral posterior disc protrusion. This does not significantly compromise the spinal canal or neural foramina. At T3-4, there is mild central and right paracentral posterior disc protrusion. This does not significantly compromise the spinal canal or the neural foramina. At T4-5, T5-6, and T6-7, there is mild degenerative disc narrowing. No significant disc bulge or protrusion or spinal stenosis At T7-8, there is mild central disc protrusion which does not compromise the spinal canal. The neural foramina are preserved At T8-9, there is right paracentral posterior disc protrusion which does not significant compromise the spinal canal or neural foramina. At the remaining disc levels, no significant disc bulge or protrusion, spinal stenosis, or neural foraminal stenosis. There is a small nerve root sleeve cysts of the left T11-12 nerve root Incidental finding is made of a small left renal cyst Impression: No acute bony trauma Minimal degenerative changes, as detailed on a level by level basis above
[2019-02-03] MEDS ORDERED: VALIUM5 MG ORAL (15:11)
[2019-02-03 15:34] VITALS: BP 136/80
--- NOTE | 2019-02-03 15:34 | NUR ---
ED Nurse Note: Patient cleared for discharge by Dr. Rapp. Patient AxO x 4, no s/s of acute distress, steady gait. Patient verbalized understanding of discharge and medication instructions. ID band removed. IV removed without complication.
== END 2019-02-03 15:34 | disposition home or self-care (01) ==
LOC: EMR 12:55
DX: M62.830 Muscle spasm of back (principal); K59.00 Constipation, unspecified; I10 Essential (primary) hypertension; K21.9 Gastro-esophageal reflux disease without esophagitis; Z86.73 Personal history of transient ischemic attack (TIA), and cerebral infarction without residual deficits
CPT/HCPCS: 36415; 72146; 72148; 80053; 85025; 96374; 99284; J1885

== ENCOUNTER 2019-03-25 23:28 | Inpatient (IN) | payer OTHER ==
[~2019-03-25] VITALS: Ht 162.6 cm; Wt 86.2 kg
[~2019-03-25 23:28] MED LIST changes: +VALIUM5 MG ORAL
[2019-03-25 23:50] VITALS: BP 111/65
--- NOTE | 2019-03-25 23:50 | NUR ---
ED Nurse Note: Pt walked into c/o flu like symptoms- cough and bodyache x2 days. Pt also complains of difficulty urinating for 3 days. Afebrile. Not in any distress. No SOB. Pt placed on solar power installer.
[2019-03-26] VITALS (7 sets, daily range): BP systolic 120–142; BP diastolic 73–107
--- NOTE | 2019-03-26 | NUR ---
ED Nurse Note: ERMD at bedside.
--- NOTE | 2019-03-26 00:07 | NUR ---
ED Nurse Note: IV line established. Blood and urine specime collected and sent to lab.
[2019-03-26] MEDS ORDERED: Acetaminophen 500mg (ES) tab ORAL ONE (00:15)
[2019-03-26 00:47] LABS: HEMATOCRIT 40.5 % (42.0-52.0); HEMOGLOBIN 15.3 G/DL (14.2-18.0); MEAN CORPUSCULAR VOLUME 86 FL (80-99); PLATELET COUNT 133 K/UL (150-450); RED BLOOD COUNT 4.74 M/UL (4.70-6.10); RED CELL DISTRIBUTION WIDTH 12.3 % (11.6-14.8)
[2019-03-26 00:50] LABS: APPEARANCE,URINE CLEAR; BILIRUBIN, URINE 1+ (NEGATIVE); COLOR,URINE BROWN; GLUCOSE, URINE (UA) NEGATIVE (NEGATIVE); KETONES,URINE 1+ (NEGATIVE); LEUKOCYTE ESTERASE ,URINE 3+ (NEGATIVE); NITRITE,URINE POSITIVE (NEGATIVE); PH,URINE 5 (4.5-8.0); PROTEIN,URINE 3+ (NEGATIVE); UROBILINOGEN,URINE 4 MG/DL (0.0-1.0)
[2019-03-26 00:55] LABS: WHITE BLOOD COUNT 23.4 K/UL (4.8-10.8)
[2019-03-26 00:57] LABS: ANION GAP 11 mmol/L (5-15); BLOOD UREA NITROGEN 12 mg/dL (7-18); CALCIUM 8.5 MG/DL (8.5-10.1); CARBON DIOXIDE 28 MMOL/L (21-32); CHLORIDE 98 MMOL/L (98-107); CREATININE 1.2 MG/DL (0.55-1.30); POTASSIUM 3.3 MMOL/L (3.5-5.1); SODIUM 137 MMOL/L (136-145)
--- NOTE | 2019-03-26 01:00 | Diagnostic Imaging Report ---
EXAM: XR Chest, 1 View CLINICAL HISTORY: COUGH TECHNIQUE: Frontal view of the chest. COMPARISON: 01/31/2019. FINDINGS: Lungs: Bibasilar linear atelectasis. Cannot exclude mild superimposed infiltrates. Pleural space: Unremarkable. No pneumothorax. Heart: Unremarkable. No cardiomegaly. Mediastinum: Unremarkable. Bones/joints: Unremarkable. IMPRESSION: Bibasilar linear atelectasis. Cannot exclude mild superimposed infiltrates.
[2019-03-26 01:07] LABS: ALANINE AMINOTRANSFERASE 22 U/L (12-78); ALBUMIN 3.1 G/DL (3.4-5.0); ALBUMIN/GLOBULIN RATIO 0.8 (1.0-2.7); ALKALINE PHOSPHATASE 62 U/L (46-116); ASPARTATE AMINO TRANSFERASE 14 U/L (15-37)
--- NOTE | 2019-03-26 01:20 | Emergency Room Report ---
History of Present Illness General Chief Complaint: Flu Like Symptoms Source: Patient Present Illness HPI 53-year-old male, history of hypertension hyperlipidemia presents with cough, fever/chills x2 days no aggravating leaving factors severity is moderate, constant, patient also reports some shortness of breath, body aches, patient presents for evaluation Allergies: Coded Allergies: No Known Allergies (Unverified , 04/21/16) Patient History Past Medical History: see triage record Reviewed Nursing Documentation: PMH: Agreed; PSxH: Agreed Nursing Documentation-PMH Hx Cardiac Problems: Yes - cholesterol Hx Hypertension: Yes Hx Cerebrovascular Accident: Yes Review of Systems All Other Systems: negative except mentioned in HPI Physical Exam Vital Signs Date Time Temp Pulse Resp B/P (MAP) Pulse Ox O2 Delivery O2 Flow Rate FiO2 03/25/19 23:45 99.3 123 16 111/65 (80) 98 Room Air Sp02 EP Interpretation: reviewed, normal General Appearance: well appearing, no apparent distress, alert Head: normocephalic, atraumatic Eyes: bilateral eye PERRL, bilateral eye EOMI ENT: uvula midline, dry mucus membranes Neck: supple, thyroid normal, supple/symm/no masses Respiratory: lungs clear, no respiratory distress, no retraction, no accessory muscle use Cardiovascular #1: normal peripheral pulses, no edema, no gallop, no murmur, tachycardia Gastrointestinal: non tender, soft, no guarding, no rebound Musculoskeletal: normal inspection Neurologic: alert, oriented x3 Psychiatric: mood/affect normal Skin: no rash, warm/dry Medical Decision Making Diagnostic Impression: Primary Impression: Leukocytosis Qualified Codes: D72.829 - Elevated white blood cell count, unspecified Additional Impression: UTI (urinary tract infection) Qualified Codes: N30.01 - Acute cystitis with hematuria ER Course 53-year-old male presents with fever/chills, tachycardia, differential diagnosis includes pneumonia, influenza, sepsis Patient with dry mucous membranes, will rehydrate with fluids, patient also found to have superimposed infiltrates bilaterally, will start ceftriaxone, azithromycin, patient also with a large leukocytosis will admit patient for pneumonia and treatment Patient found to have a UTI Patient given 2 L NS, patient admitted to Dr. Perez Laboratory Tests Test 03/26/19 00:15 White Blood Count 23.4 K/UL (4.8-10.8) *H Red Blood Count 4.74 M/UL (4.70-6.10) Hemoglobin 15.3 G/DL (14.2-18.0) Hematocrit 40.5 % (42.0-52.0) L Mean Corpuscular Volume 86 FL (80-99) Mean Corpuscular Hemoglobin 32.2 PG (27.0-31.0) H Mean Corpuscular Hemoglobin Concent 37.7 G/DL (32.0-36.0) H Red Cell Distribution Width 12.3 % (11.6-14.8) Platelet Count 133 K/UL (150-450) L Mean Platelet Volume 6.2 FL (6.5-10.1) L Neutrophils (%) (Auto) % (45.0-75.0) Lymphocytes (%) (Auto) % (20.0-45.0) Monocytes (%) (Auto) % (1.0-10.0) Eosinophils (%) (Auto) % (0.0-3.0) Basophils (%) (Auto) % (0.0-2.0) Differential Total Cells Counted 100 Neutrophils % (Manual) 84 % (45-75) H Lymphocytes % (Manual) 10 % (20-45) L Monocytes % (Manual) 5 % (1-10) Eosinophils % (Manual) 0 % (0-3) Basophils % (Manual) 1 % (0-2) Band Neutrophils 0 % (0-8) Platelet Estimate Decreased L Platelet Morphology Normal Urine Color Brown Urine Appearance Clear Urine pH 5 (4.5-8.0) Urine Specific [place] 1.025 (1.005-1.035) Urine Protein 3+ (NEGATIVE) H Urine Glucose (UA) Negative (NEGATIVE) Urine Ketones 1+ (NEGATIVE) H Urine Blood 5+ (NEGATIVE) H Urine Nitrite Positive (NEGATIVE) H Urine Bilirubin 1+ (NEGATIVE) H Urine Ictotest Negative (NEGATIVE) Urine Urobilinogen 4 MG/DL (0.0-1.0) H Urine Leukocyte Esterase 3+ (NEGATIVE) H Urine RBC 15-20 /HPF (0 - 0) H Urine WBC Tntc /HPF (0 - 0) H Urine Squamous Epithelial Cells Occasional /LPF Urine Bacteria Few /HPF (NONE) Urine Mucus Few /LPF (NONE/OCC) H Sodium Level 137 MMOL/L (136-145) Potassium Level 3.3 MMOL/L (3.5-5.1) L Chloride Level 98 MMOL/L (98-107) Carbon Dioxide Level 28 MMOL/L (21-32) Anion Gap 11 mmol/L (5-15) Blood Urea Nitrogen 12 mg/dL (7-18) Creatinine 1.2 MG/DL (0.55-1.30) Estimate Glomerular Filtration Rate > 60 mL/min (>60) Glucose Level 139 MG/DL (74-106) H Lactic Acid Level 1.10 mmol/L (0.4-2.0) Calcium Level 8.5 MG/DL (8.5-10.1) Total Bilirubin 1.0 MG/DL (0.2-1.0) Aspartate Amino Transferase (AST) 14 U/L (15-37) L Alanine Aminotransferase (ALT) 22 U/L (12-78) Alkaline Phosphatase 62 U/L (46-116) Troponin I 0.000 ng/mL (0.000-0.056) Pro-B-Type Natriuretic Peptide 184 pg/mL (0-125) H Total Protein 7.0 G/DL (6.4-8.2) Albumin 3.1 G/DL (3.4-5.0) L Globulin 3.9 g/dL Albumin/Globulin Ratio 0.8 (1.0-2.7) L Microbiology Date/Time Source Procedure Growth Status 03/26/19 00:15 Nasal Nares - Final Complete 03/26/19 00:15 Nasal Nares - Final Complete EKG Diagnostic Results EKG Time: 00:24 EP Interpretation: Sinus tachycardia, rate 109, QTc 441, normal axis no acute ST elevations Rhythm Strip Diag. Results Rhythm Strip Time: 01:20 EP Interpretation: yes Rate: 97 Rhythm: NSR, no PVC's, no ectopy Chest X-Ray Diagnostic Results Chest X-Ray Diagnostic Results : Chest X-Ray Ordered: Yes # of Views/Limited/Complete: 1 View Indication: Shortness of Breath EP Interpretation: Yes Interpretation: other - Bilateral consolidations Impression: Other - Bilateral pneumonia Electronically Signed by: Nate Tony MD Last Vital Signs Date Time Temp Pulse Resp B/P (MAP) Pulse Ox O2 Delivery O2 Flow Rate FiO2 03/26/19 01:01 99.3 03/25/19 23:50 123 16 111/65 98 Room Air Disposition: ADMITTED INPATIENT Condition: Stable Nate Tony MD Mar 26, 2019 01:20
[2019-03-26] MEDS ORDERED: cefTRIAXone 1 GM in NS 55 ML IVPB ONE (01:30)
[2019-03-26] MEDS ORDERED: Azithromycin 250mg tab ORAL ONE (01:30)
[2019-03-26] MEDS ORDERED: Tamsulosin 0.4mg cap ORAL ONE (03:15)
--- NOTE | 2019-03-26 04:16 | NUR ---
ED Nurse Note: Report given to Rolo SMITH from [facility].
--- NOTE | 2019-03-26 04:20 | NUR ---
TRANSFER TO FLOOR: Patient transferred to Medr unit. Report given to Rolo SMITH. Pt alert and oriented, verbally responsive. Not in any distress. Afebrile. Sinus rhythm. IV line on right AC 20g patent and intact. On NS 1L patent and infusing well. Med recon done. No skin issues. All belongings sent with the patient.
--- NOTE | 2019-03-26 04:30 | NUR ---
NURSE NOTES: received patient per chuy accompanied by er staff. with iv line on the right ac, saline lock. belongings on the bedside patient is complaining of not able to urinate. bladder scan done with noted 600 ml of urine. oriented to room set up. bed locked and in lowest position. call light and light button within easy reach. called dr. allen for admission orders. awaiting for orders. charge nurse made aware.
--- NOTE | 2019-03-26 05:30 | NUR ---
NURSE NOTES: paged dr. allen again awaiting for orders. dr. english ordered to insert bustos cath. went to the room and mary and tried to insert a catheter. unable to insert. with noted whitish to yellowish thick secretion on the tip of the catheter.
--- NOTE | 2019-03-26 06:30 | NUR ---
NURSE NOTES; tried to insert with other staff, still unable to insert with the same noted secretion on the tip of the catheter. charge nurse made aware. paged [facility] awaiting for orders.
--- NOTE | 2019-03-26 06:41 | Consultation ---
History of Present Illness General Chief Complaint: Flu Like Symptoms Present Illness Allergies: Coded Allergies: No Known Allergies (Unverified , 04/21/16) Medication History Scheduled Amlodipine-Atorvastatin 10-20 Mg (Amlodipine-Atorvastatin 10-20 Mg), 1 TAB ORAL DAILY, (Reported) Aspirin* (Aspir 81*), 81 MG ORAL DAILY, (Reported) Atorvastatin Calcium* (Atorvastatin Calcium*), 40 MG ORAL BEDTIME, (Reported) Benazepril/Hydrochlorothiazide 20-12.5 Mg Tab (Benazepril-Hctz 20-12.5 Mg Tab), 1 TAB ORAL DAILY, (Reported) Cephalexin* (Keflex*), 500 MG ORAL EVERY 6 HOURS Diclofenac Sodium (Voltaren), 5 GM TP DAILY Docusate Sodium* (Colace*), 100 MG ORAL THREE TIMES A DAY Magnesium Citrate (Magnesium Citrate), 150 ML PO DAILY Omeprazole (Omeprazole), 40 MG ORAL DAILY, (Reported) Pantoprazole* (Pantoprazole*), 40 MG ORAL DAILY, (Reported) Ranitidine Hcl* (Zantac*), 150 MG ORAL TWICE A DAY Scheduled PRN Diazepam* (Valium*), 5 MG ORAL TID PRN for Back pain Tramadol Hcl* (Ultram*), 50 MG ORAL Q6H PRN for For Pain, (Reported) Miscellaneous Medications Ca Carbonate/Vitamin D3/Vit K (Calcium + D Soft Chewable Tab), Unknown Dose PO, (Reported) Patient History Healthcare decision maker Resuscitation status Full Code Advanced Directive on File Physical Exam Last 24 Hour Vital Signs Date Time Temp Pulse Resp B/P (MAP) Pulse Ox O2 Delivery O2 Flow Rate FiO2 03/26/19 05:22 Room Air 03/26/19 04:20 98.6 76 23 122/73 98 Room Air 03/26/19 04:20 98.6 76 23 122/73 98 Room Air 03/26/19 02:17 97.8 89 22 120/73 97 Room Air 03/26/19 01:01 99.3 03/26/19 01:01 99.3 03/25/19 23:50 99.3 123 16 111/65 98 Room Air 03/25/19 23:50 123 16 Room Air 03/25/19 23:45 99.3 123 16 111/65 (80) 98 Room Air Intake and Output 03/25/19 03/26/19 19:00 07:00 Intake Total 5055 ml Balance 5055 ml Intake IV Total 5055 ml # Voids 2 Laboratory Tests Test 03/26/19 00:15 White Blood Count 23.4 K/UL (4.8-10.8) *H Red Blood Count 4.74 M/UL (4.70-6.10) Hemoglobin 15.3 G/DL (14.2-18.0) Hematocrit 40.5 % (42.0-52.0) L Mean Corpuscular Volume 86 FL (80-99) Mean Corpuscular Hemoglobin 32.2 PG (27.0-31.0) H Mean Corpuscular Hemoglobin Concent 37.7 G/DL (32.0-36.0) H Red Cell Distribution Width 12.3 % (11.6-14.8) Platelet Count 133 K/UL (150-450) L Mean Platelet Volume 6.2 FL (6.5-10.1) L Neutrophils (%) (Auto) % (45.0-75.0) Lymphocytes (%) (Auto) % (20.0-45.0) Monocytes (%) (Auto) % (1.0-10.0) Eosinophils (%) (Auto) % (0.0-3.0) Basophils (%) (Auto) % (0.0-2.0) Differential Total Cells Counted 100 Neutrophils % (Manual) 84 % (45-75) H Lymphocytes % (Manual) 10 % (20-45) L Monocytes % (Manual) 5 % (1-10) Eosinophils % (Manual) 0 % (0-3) Basophils % (Manual) 1 % (0-2) Band Neutrophils 0 % (0-8) Platelet Estimate Decreased L Platelet Morphology Normal Urine Color Brown Urine Appearance Clear Urine pH 5 (4.5-8.0) Urine Specific [place] 1.025 (1.005-1.035) Urine Protein 3+ (NEGATIVE) H Urine Glucose (UA) Negative (NEGATIVE) Urine Ketones 1+ (NEGATIVE) H Urine Blood 5+ (NEGATIVE) H Urine Nitrite Positive (NEGATIVE) H Urine Bilirubin 1+ (NEGATIVE) H Urine Ictotest Negative (NEGATIVE) Urine Urobilinogen 4 MG/DL (0.0-1.0) H Urine Leukocyte Esterase 3+ (NEGATIVE) H Urine RBC 15-20 /HPF (0 - 0) H Urine WBC Tntc /HPF (0 - 0) H Urine Squamous Epithelial Cells Occasional /LPF Urine Bacteria Few /HPF (NONE) Urine Mucus Few /LPF (NONE/OCC) H Sodium Level 137 MMOL/L (136-145) Potassium Level 3.3 MMOL/L (3.5-5.1) L Chloride Level 98 MMOL/L (98-107) Carbon Dioxide Level 28 MMOL/L (21-32) Anion Gap 11 mmol/L (5-15) Blood Urea Nitrogen 12 mg/dL (7-18) Creatinine 1.2 MG/DL (0.55-1.30) Estimat Glomerular Filtration Rate > 60 mL/min (>60) Glucose Level 139 MG/DL (74-106) H Lactic Acid Level 1.10 mmol/L (0.4-2.0) Calcium Level 8.5 MG/DL (8.5-10.1) Total Bilirubin 1.0 MG/DL (0.2-1.0) Aspartate Amino Transf (AST/SGOT) 14 U/L (15-37) L Alanine Aminotransferase (ALT/SGPT) 22 U/L (12-78) Alkaline Phosphatase 62 U/L (46-116) Troponin I 0.000 ng/mL (0.000-0.056) Pro-B-Type Natriuretic Peptide 184 pg/mL (0-125) H Total Protein 7.0 G/DL (6.4-8.2) Albumin 3.1 G/DL (3.4-5.0) L Globulin 3.9 g/dL Albumin/Globulin Ratio 0.8 (1.0-2.7) L Microbiology Date/Time Source Procedure Growth Status 03/26/19 00:15 Nasal Nares - Final Complete 03/26/19 00:15 Nasal Nares - Final Complete Height (Feet): 5 Height (Inches): 4.00 Weight (Pounds): 192 Assessment/Plan Assessment/Plan: Hematology Consultation REQ : Master Marinelli RFC: Leukocytosis, Anemia DOS: 03/26/2019 ID 53-year-old male, history of hypertension hyperlipidemia presents with cough, fever/chills x2 days no aggravating leaving factors severity is moderate, constant, patient also reports some shortness of breath, body aches, patient presents for evaluation. Labs have been reviewed, and at this time has severe urinary retention, may require a bustos to be placed. Allergies: No Known Allergies (Unverified , 04/21/16) Past Medical History: see triage record, hx of CVA Surgical hx: right leg saw+++ accident Reviewed Nursing Documentation: PMH: Agreed; PSxH: Agreed Nursing Documentation-PMH Hx Cardiac Problems: Yes - cholesterol Hx Hypertension: Yes Hx Cerebrovascular Accident: Yes Social hx: single, has 2 kids, used to work in construction, hx of tobacco use in the past, no alcohol or drugs Review of Systems All Other Systems: negative except mentioned in HPI Physical Exam General: well appearing, no apparent distress, alert Neck: supple, thyroid normal, supple/symm/no masses Respiratory: lungs clear, no respiratory distress CV: normal peripheral pulses, no edema, no gallop Gastrointestinal: non tender, soft, no guarding, no rebound Musculoskeletal: normal inspection Neurologic: alert, oriented x3 Psychiatric: mood/affect normal Skin: no rash, warm/dry Labs: noted Imaging: reviewed Assessment and Recs # Leukocytosis -- likely is related to urinary obstruction, uti --> has been started on abx --> as per ID care --> likely needs bustos # Thrombocytopenia likely due to underlying infection --> hepatitis and hiv have been ordered --> imaging has been noted # Hypokalemia --> has been given Kcl # Acute cystitis with hematuria --> is s/p ivf # Tachycardia --> likely due to above uti # Superimposed infiltrates bilaterally, will start ceftriaxone, azithromycin --> on abx Appreciate consultation and dw Vinnie Chappell MD Mar 26, 2019 06:41
--- NOTE | 2019-03-26 07:20 | NUR ---
HAND-OFF: Report given to nayeli. endorsed that the md hasn't call back yet for admission orders. no bustos at the moment.
--- NOTE | 2019-03-26 07:30 | NUR ---
NURSE NOTES: Patient is in bed awake and able to verbalize needs. Patient c/o discomfort r/t difficulty urinating. Patient is anxious but cooperative. Awaiting call from MD. Patient is in bed in locked and lowest position with call light within reach. Will continue to monitor.
--- NOTE | 2019-03-26 08:20 | NUR ---
NURSE NOTES: RECEIVED CALL FROM DR. LO.PRIMARY RN AT BEDSIDE ATTEMPTING TO PLACE COUDE CATHETER. PER DR. LO, DR. PIEDRA( ER MD) NEVER ENDORSED PATIENT TO HIM. PER DR. LO "I CAN NOT ACCEPT PATIENT W/O SIGN OUT". DR. LO PLACED CALL TO AM ER MD , DR. HALE AND RECEIVED APPROPRIATE REPORT AND SIGN OUT TO RECEIVE PATIENT. RECEIVED ORDERS FOR PATIENT AND CONSULTS TO FOLLOW PATIENT. PATIENT AND PRIMARY NURSE INFORMED.
--- NOTE | 2019-03-26 08:30 | NUR ---
NURSE NOTES: Attempted insertion of coude catheter, unsuccessful. Paged Dr. Beckwith regarding urology consult for patient. Dr. Beckwith told RN that he will be here to see the patient later today and to provide comfort measures in the meantime. No further orders given at this time. Patient is uncomfortable but stable.
[2019-03-26] MEDS: Acetaminophen 500mg (ES) tab ORAL PRN (08:57)
[2019-03-26] MEDS ORDERED: Bisacodyl EC 5mg tab ORAL SCH (09:00)
[2019-03-26] MEDS ORDERED: Docusate 100mg cap ORAL SCH (09:00)
[2019-03-26] MEDS: Bisacodyl EC 5mg tab ORAL SCH (09:28)
[2019-03-26 09:38] LABS: HEMATOCRIT 38.9 % (42.0-52.0); HEMOGLOBIN 14.7 G/DL (14.2-18.0); MEAN CORPUSCULAR VOLUME 86 FL (80-99); PLATELET COUNT 121 K/UL (150-450); RED BLOOD COUNT 4.55 M/UL (4.70-6.10); RED CELL DISTRIBUTION WIDTH 12.1 % (11.6-14.8)
[2019-03-26 09:40] LABS: WHITE BLOOD COUNT 25.3 K/UL (4.8-10.8)
--- NOTE | 2019-03-26 10:02 | NUR ---
NURSE NOTES: Paged lab values to Dr. Perez. Awaiting response.
--- NOTE | 2019-03-26 11:09 | Consultation ---
Consult Note Consult Note asked to eval for urinary Sxs 53-year-old male, history of hypertension hyperlipidemia presents with cough, fever/chills x2 days no aggravating leaving factors severity is moderate, constant, patient also reports some shortness of breath, body aches, patient presents for evaluation No Known Allergies (Unverified , 04/21/16) Hx Cardiac Problems: Yes - cholesterol Hx Hypertension: Yes Hx Cerebrovascular Accident: Yes interviewed gives history of prostate Ca !? Assessment/Plan Urinary Retention UTI / Leukocytosis Bibasilar Atx Electrolyte Imbalance Uro eval correct lytes ? Flomax monitor renal parameters Richard Crews MD Mar 26, 2019 11:09
--- NOTE | 2019-03-26 13:00 | NUR ---
NURSE NOTES: Ultrasound done at bedside.
[2019-03-26] MEDS: Docusate 100mg cap ORAL SCH ×2 (13:29→18:00)
--- NOTE | 2019-03-26 13:47 | NUR ---
NURSE NOTES: Patient was seen by Dr. Perez. Urologist paged again to see patient. Patient is extremely uncomfortable.
[2019-03-26] MEDS ORDERED: Oseltamivir 75mg cap ORAL SCH (14:30)
--- NOTE | 2019-03-26 15:30 | NUR ---
NURSE NOTES: RN spoke to Dr. Beckwith. Dr. Beckwith will arrive shortly, urology cart at bedside.
--- NOTE | 2019-03-26 16:30 | NUR ---
NURSE NOTES: Dr. Beckwith inserted f/c, 1000cc tea colored urine output. Patient states that he feels relieved.
--- NOTE | 2019-03-26 19:45 | Consultation ---
DATE OF CONSULTATION: 03/26/2019 REASON FOR CONSULTATION: Urinary retention. HISTORY OF PRESENT ILLNESS: The patient was referred to me with urinary retention. He denies any previous prostate surgeries, who came to the ER with abdominal pain. PAST MEDICAL HISTORY: Reviewed. PAST SURGICAL HISTORY: Reviewed. MEDICATIONS: Reviewed. REVIEW OF SYMPTOMS: He has suprapubic distention and tenderness. Otherwise negative. PHYSICAL EXAM: VITAL SIGNS: He is afebrile. Vital status stable. ABDOMEN: Soft and distended with palpable bladder. GENITOURINARY: He refused prostate exam. Scrotal and penile exam was normal. Swanson catheter was placed, a 14-[place]namese coude, and left indwelling. Approximately 300 mL of urine was expressed. The patient tolerated the catheterization well. ASSESSMENT AND PLAN: BPH with urinary retention. I would keep the Swanson for 7 days considering his retention. I will see him in my office as an outpatient for cystoscopy and further studies. Terrance Beckwith M.D. DR: PERFECTO JOB#: [id number] CC:
--- NOTE | 2019-03-26 19:52 | NUR ---
HAND-OFF: Report given to Lino Moreno. Patient is stable.
[2019-03-26] MEDS ORDERED: Tamsulosin 0.4mg cap ORAL SCH (21:00)
--- NOTE | 2019-03-26 22:15 | Consultation ---
DATE OF CONSULTATION: 03/26/2019 GASTROENTEROLOGY CONSULTATION CONSULTING PHYSICIAN: Margot Calixto M.D. REFERRING PHYSICIAN: Master Perez M.D. CHIEF COMPLAINT: I was asked to see this patient by Dr. Master Perez for evaluation of vomiting. HISTORY OF PRESENT ILLNESS: The patient is a pleasant 53-year-old man, comes into the hospital with some cough and chills for about two days. He first thought this is a flu-like illness, but then noticed constipation and difficulty urinating. He not has a very distended bladder and is very uncomfortable. Multiple Swanson catheter trials have failed. He has not vomited any further. He has had a colonoscopy about a year ago in the [place], which was unremarkable. He is normally not constipated until a few days ago. PAST MEDICAL HISTORY: History of hypertension, high cholesterol. FAMILY HISTORY: Noncontributory. SOCIAL HISTORY: The patient is single. He does smoke. Does not drink alcohol. REVIEW OF SYSTEMS: Otherwise negative. PHYSICAL EXAMINATION: GENERAL: This is a pleasant man, seen in his room. HEENT: Normocephalic and atraumatic. Sclerae anicteric. Oropharynx clear. NECK: Supple. CHEST: Clear to auscultation. CARDIOVASCULAR: Revealed regular rate. ABDOMEN: Soft with mildly distended. There was a bladder fullness in the pelvic area, which was tender. EXTREMITIES: Revealed no edema. LABORATORY DATA: Noted. ASSESSMENT: This patient presents with bladder outlet obstruction and is awaiting Urology consultation for decompression. His vomiting, constipation, and other symptoms may be resolved and therefore we will watch for now. Should he persist with GI symptoms, then further workup may be necessary. RECOMMENDATIONS: Per above discussion and per orders written in the chart. Thank you for asking me to participate in the care of this patient. Margot Calixto M.D. DR: SHASTA JOB#: [id number] CC:
--- NOTE | 2019-03-26 23:00 | Consultation ---
DATE OF CONSULTATION: 03/26/2019 INFECTIOUS DISEASE CONSULTATION CONSULTING PHYSICIAN: Sabino Dawkins M.D. REFERRING PHYSICIAN: Master Perez M.D. REASON FOR CONSULTATION: Sepsis, UTI, urinary retention, and flu-like symptoms. HISTORY OF PRESENT ILLNESS: This is a 53-year-old male, admitted today from home complaining of fever, chills, and cough for two days. The patient is getting [id number] cold medication. Also developed urine retention. So far, trial for putting Swanson catheter was unsuccessful. The patient had leukocytosis and tachycardia. PAST MEDICAL HISTORY: Significant for hypertension, hyperlipidemia, CVA many years ago. ALLERGIES: No known drug allergy. MEDICATIONS: Flomax, Colace, Protonix, , Tylenol, Zofran, gets a dose of ceftriaxone. SOCIAL HISTORY: Single. Smoker, smokes 20 cigarettes a day. Denies alcohol or drug abuse. REVIEW OF SYSTEMS: As per history of present illness. Fever, chills, cough, urinary retention. PHYSICAL EXAMINATION: VITAL SIGNS: Temperature 97.4, pulse 105, blood pressure 131/107. GENERAL APPEARANCE: Well-developed, obese. HEAD AND NECK: [place] conjunctiva. HEART: Tachycardic, corrected. LUNGS: Clear. ABDOMEN: Soft, seems to have distended bladder. EXTREMITY: Has no edema. NEUROLOGIC: Awake, alert, oriented x3. LABORATORY AND DIAGNOSTIC DATA: WBC 25.3, hemoglobin 14.7, hematocrit 38.9, and platelets is 121,000. Sodium 137, potassium 3.3, chloride 98, bicarbonate 28, BUN 12, creatinine 1.0, glucose 139. Troponin negative. Albumin 3.1. HIV test negative. Abdominal ultrasound was done, report is pending. Chest x-ray showed bibasilar atelectasis. IMPRESSION: Sepsis with leukocytosis and tachycardia; pyuria, likely UTI. Has urinary retention, upper respiratory symptoms, hypertension, hyperlipidemia. RECOMMENDATION: Continue with ceftriaxone. Urologic evaluation for Swanson catheter is pending. We will follow up the culture for abdominal ultrasound. At the end of my exam, I thank Dr. Perez for involving me in the care of this patient. Sabino Dawkins M.D. DR: DASIHA JOB#: [id number] CC:
[2019-03-27] VITALS: BP 141/80
[2019-03-27] MEDS: cefTRIAXone 1 GM in D5W 55 ML IVPB SCH (02:06)
[2019-03-27 04:00] VITALS: BP 147/72
--- NOTE | 2019-03-27 07:30 | NUR ---
HAND OFF TO NIEVES SMITH
[2019-03-27 08:00] VITALS: BP 144/93
--- NOTE | 2019-03-27 08:00 | NUR ---
NURSE NOTES: Received report from Lino SMITH, pt a/a/o x4 laying in bed with no signs of report or other issues at this time. IV on the right AC gauge #20 heplock. Swanson cath in place draining to gravity. pt is able to ambulate to the restroom with steady gait. call light within reach, bed in lowest position. side rales up x2. I will f/u as needed.
[2019-03-27] MEDS: Bisacodyl EC 5mg tab ORAL SCH (08:45)
[2019-03-27] MEDS: Docusate 100mg cap ORAL SCH ×3 (08:45→18:00)
--- NOTE | 2019-03-27 09:01 | History and Physical Report ---
DATE OF ADMISSION: 03/26/2019 HISTORY OF PRESENT ILLNESS: The patient comes in with urinary tract infection and was found to have urinary retention with bilateral pneumonia and hypokalemia. Admitted for those reasons. Initially, I did not call back to give admitting orders because I was never endorsed by the emergency room, about this patient. He never endorsed this patient to me, so I did not even think that this was my patient and I just thought maybe it was a mistake and sent here by mistake, so I did call back and found out about the patient's admission was through the nurse at the floor in [address], they had called me for floor admission orders, so since the ER doctor had not endorsed it to me, I called the ER and I notified as well as about this. Dr. Sahu____ was able to give me a second hand sign-out and then after , I accepted the patient since I was endorsed and then I gave admitting orders. I called Dr. Terrance Beckwith immediately to see the patient for urinary retention and elevated urine bladder scan value. The patient also has a leukocytosis of 23,000. The patient complained of suprapubic tenderness. The patient is not in any distress. He is lying comfortably on the bed. The patient did have some anorexia, fever, chills, and could not urinate for three days. He thought it was flu, so he took Theraflu and did not come to the emergency room until finally the day before yesterday and he could not urinate. That is why he was admitted for urinary retention, hypokalemia, and urinary tract infection. PAST MEDICAL HISTORY: GERD, constipation, hypertension, and hyperlipidemia. PAST SURGICAL HISTORY: Right leg surgery. ALLERGIES: No known allergies. MEDICATIONS: Lipitor, aspirin, Colace, omeprazole, and tramadol. FAMILY HISTORY: Noncontributory. REVIEW OF SYSTEMS: HEENT: Denies headaches. Does have some fever and chills. RESPIRATORY: Denies shortness of breath. Denies cough. CARDIOVASCULAR: Denies chest pain. GASTROINTESTINAL: Reports suprapubic tenderness. EXTREMITIES: Denies pain in lower extremities. CENTRAL NERVOUS SYSTEM: Denies change in speech pattern. PHYSICAL EXAMINATION: VITAL SIGNS: Temperature 98.6, pulse is 76, and blood pressure 132/73. HEENT: PERRLA. NECK: Supple. No lymphadenopathy. CHEST: Clear to auscultation. CARDIOVASCULAR: Regular rate and rhythm. GASTROINTESTINAL: Suprapubic tenderness. The patient is not in acute distress. ABDOMEN: Soft, nontender. No organomegaly. Bowel sounds are present. EXTREMITIES: No edema. Moves all four extremities. NEUROLOGIC: Sensory intact to light touch. LABORATORY DATA: WBC of 23.4, hemoglobin 15, and platelets 133. Sodium 137, potassium 3.3, BUN of 12, creatinine 1.2, glucose of 139. ASSESSMENT AND PLAN: Urinary retention, UTI, hypokalemia, and pneumonia on the x-ray. I have ordered a stat ultrasound to rule out hydronephrosis. I have also, as mentioned, called Dr. Terrance Beckwith to put a Swanson catheter since the nurses could not put it and the patient is not in any acute distress at this point. I have also consulted Dr. Crews, Dr. Sabino Dawkins, Dr. Margot Calixto, and Dr. Beckwith to help with the management of the above-mentioned diagnoses and abnormalities. Master Perez M.D. DR: HORACE JOB#: [id number] CC:
--- NOTE | 2019-03-27 09:22 | Hematology/Onc Progress Note ---
Assessment/Plan Assessment/Plan Assessment and Recs # Leukocytosis -- likely is related to urinary obstruction, uti --> has been started on abx --> as per ID care --> s/p bustos placement # Thrombocytopenia likely due to underlying infection --> hepatitis and hiv have been ordered --> imaging has been noted --> plt trend 133-->121k # Hypokalemia --> has been given Kcl # Acute cystitis with hematuria --> is s/p ivf # Tachycardia --> likely due to above uti # Superimposed infiltrates bilaterally, will start ceftriaxone --> on abx --> per id recs Appreciate consultation and dw Rn Subjective Constitutional: Denies: no symptoms, chills, fever, malaise, weakness, other HEENT: Denies: no symptoms, eye pain, blurred vision, tearing, double vision, ear pain, ear discharge, nose pain, nose congestion, throat pain, throat swelling, mouth pain, mouth swelling, other Cardiovascular: Denies: no symptoms, chest pain, edema, irregular heart rate, lightheadedness, palpitations, syncope, other Respiratory: Denies: no symptoms, cough, shortness of breath, SOB with excertion, SOB at rest, sputum, wheezing, other Gastrointestinal/Abdominal: Denies: no symptoms, abdomen distended, abdominal pain, black stools, tarry stools, blood in stool, constipated, diarrhea, difficulty swallowing, nausea, poor appetite, poor fluid intake, rectal bleeding , vomiting, other Genitourinary: Denies: no symptoms, burning, discharge, frequency, flank pain, hematuria, incontinence, pain, urgency, other Neurologic/Psychiatric: Denies: no symptoms, anxiety, depressed, emotional problems, headache, numbness, paresthesia, pre-existing deficit, seizure, tingling, tremors, weakness, other Endocrine: Denies: no symptoms, excessive sweating, flushing, intolerance to cold, intolerance to heat, increased hunger, increased thirst, increased urine, unexplained weight gain, unexplained weight loss, other Allergies: Coded Allergies: No Known Allergies (Unverified , 04/21/16) Subjective 2/3: no bleeding, no f/c, no events, no night sweats Objective Objective Current Medications Medications (Trade) Dose Ordered Sig/Selma Route PRN Reason Start Time Stop Time Status Last Admin Dose Admin Acetaminophen (Tylenol) 500 mg Q6H PRN ORAL Mild Pain/Temp > 100.5 03/26/19 08:30 04/25/19 08:29 03/26/19 08:57 Bisacodyl (Dulcolax) 10 mg DAILY ORAL 03/26/19 09:00 04/25/19 08:59 03/27/19 08:45 Ceftriaxone Sodium 1 gm/ Dextrose 55 ml @ 110 mls/hr Q24H IVPB 03/27/19 02:00 04/03/19 01:59 03/27/19 02:06 Docusate Sodium (Colace) 100 mg TID ORAL 03/26/19 13:00 04/25/19 08:59 03/27/19 08:45 Ondansetron HCl (Zofran) 4 mg Q6H PRN IVP Nausea & Vomiting 03/26/19 08:30 04/25/19 08:29 Pantoprazole (Protonix) 40 mg DAILY ORAL 03/26/19 09:00 04/25/19 08:59 03/27/19 08:45 Last 24 Hour Vital Signs Date Time Temp Pulse Resp B/P (MAP) Pulse Ox O2 Delivery O2 Flow Rate FiO2 03/27/19 09:04 Room Air 03/27/19 09:00 Room Air 03/27/19 08:00 98.0 101 20 144/93 (110) 95 03/27/19 04:00 98.7 96 18 147/72 (97) 95 03/27/19 00:00 99.2 103 18 141/80 (100) 95 03/26/19 20:00 99.2 103 18 141/80 (100) 95 03/26/19 16:00 98.4 107 18 142/82 (102) 94 03/26/19 12:00 97.4 105 18 131/107 (115) 95 03/26/19 09:00 Room Air 03/26/19 08:00 97.8 108 18 139/88 (105) 97 03/26/19 05:22 Room Air 03/26/19 04:20 98.6 76 23 122/73 98 Room Air 03/26/19 04:20 98.6 76 23 122/73 98 Room Air 03/26/19 02:17 97.8 89 22 120/73 97 Room Air 03/26/19 01:01 99.3 03/26/19 01:01 99.3 03/26/19 00:00 99.5 98 16 139/88 (105) 98 03/25/19 23:50 99.3 123 16 111/65 98 Room Air 03/25/19 23:50 123 16 Room Air 03/25/19 23:45 99.3 123 16 111/65 (80) 98 Room Air Intake and Output 03/26/19 03/27/19 19:00 07:00 Intake Total 200 ml Output Total 1000 ml 700 ml Balance -1000 ml -500 ml Intake Oral 200 ml Output Urine Total 1000 ml 700 ml Labs Test 03/26/19 00:15 03/26/19 08:45 White Blood Count 23.4 K/UL (4.8-10.8) 25.3 K/UL (4.8-10.8) Red Blood Count 4.74 M/UL (4.70-6.10) 4.55 M/UL (4.70-6.10) Hemoglobin 15.3 G/DL (14.2-18.0) 14.7 G/DL (14.2-18.0) Hematocrit 40.5 % (42.0-52.0) 38.9 % (42.0-52.0) Mean Corpuscular Volume 86 FL (80-99) 86 FL (80-99) Mean Corpuscular Hemoglobin 32.2 PG (27.0-31.0) 32.4 PG (27.0-31.0) Mean Corpuscular Hemoglobin Concent 37.7 G/DL (32.0-36.0) 37.9 G/DL (32.0-36.0) Red Cell Distribution Width 12.3 % (11.6-14.8) 12.1 % (11.6-14.8) Platelet Count 133 K/UL (150-450) 121 K/UL (150-450) Mean Platelet Volume 6.2 FL (6.5-10.1) 5.9 FL (6.5-10.1) Neutrophils (%) (Auto) % (45.0-75.0) % (45.0-75.0) Lymphocytes (%) (Auto) % (20.0-45.0) % (20.0-45.0) Monocytes (%) (Auto) % (1.0-10.0) % (1.0-10.0) Eosinophils (%) (Auto) % (0.0-3.0) % (0.0-3.0) Basophils (%) (Auto) % (0.0-2.0) % (0.0-2.0) Differential Total Cells Counted 100 100 Neutrophils % (Manual) 84 % (45-75) 82 % (45-75) Lymphocytes % (Manual) 10 % (20-45) 5 % (20-45) Monocytes % (Manual) 5 % (1-10) 6 % (1-10) Eosinophils % (Manual) 0 % (0-3) 0 % (0-3) Basophils % (Manual) 1 % (0-2) 0 % (0-2) Band Neutrophils 0 % (0-8) 7 % (0-8) Platelet Estimate Decreased Decreased Platelet Morphology Normal Normal Urine Color Brown Urine Appearance Clear Urine pH 5 (4.5-8.0) Urine Specific [place] 1.025 (1.005-1.035) Urine Protein 3+ (NEGATIVE) Urine Glucose (UA) Negative (NEGATIVE) Urine Ketones 1+ (NEGATIVE) Urine Blood 5+ (NEGATIVE) Urine Nitrite Positive (NEGATIVE) Urine Bilirubin 1+ (NEGATIVE) Urine Ictotest Negative (NEGATIVE) Urine Urobilinogen 4 MG/DL (0.0-1.0) Urine Leukocyte Esterase 3+ (NEGATIVE) Urine RBC 15-20 /HPF (0 - 0) Urine WBC Tntc /HPF (0 - 0) Urine Squamous Epithelial Cells Occasional /LPF Urine Bacteria Few /HPF (NONE) Urine Mucus Few /LPF (NONE/OCC) Sodium Level 137 MMOL/L (136-145) Potassium Level 3.3 MMOL/L (3.5-5.1) Chloride Level 98 MMOL/L (98-107) Carbon Dioxide Level 28 MMOL/L (21-32) Anion Gap 11 mmol/L (5-15) Blood Urea Nitrogen 12 mg/dL (7-18) Creatinine 1.2 MG/DL (0.55-1.30) Estimat Glomerular Filtration Rate > 60 mL/min (>60) Glucose Level 139 MG/DL (74-106) Lactic Acid Level 1.10 mmol/L (0.4-2.0) Calcium Level 8.5 MG/DL (8.5-10.1) Total Bilirubin 1.0 MG/DL (0.2-1.0) Aspartate Amino Transf (AST/SGOT) 14 U/L (15-37) Alanine Aminotransferase (ALT/SGPT) 22 U/L (12-78) Alkaline Phosphatase 62 U/L (46-116) Troponin I 0.000 ng/mL (0.000-0.056) Pro-B-Type Natriuretic Peptide 184 pg/mL (0-125) Total Protein 7.0 G/DL (6.4-8.2) Albumin 3.1 G/DL (3.4-5.0) Globulin 3.9 g/dL Albumin/Globulin Ratio 0.8 (1.0-2.7) Red Blood Cell Morphology Normal HIV (1&2) Antibody Rapid Negative (NEGATIVE) Height (Feet): 5 Height (Inches): 4.00 Weight (Pounds): 192 Objective Physical Exam General: well appearing, no apparent distress, alert Neck: supple, thyroid normal, supple Respiratory: lungs clear, no respiratory distress CV: normal peripheral pulses, no edema, no gallop Gastrointestinal: non tender, soft, no guarding, no rebound Musculoskeletal: normal inspection Neurologic: alert, oriented x3 Psychiatric: mood/affect normal Skin: no rash, warm/dry Vinnie Lane MD Mar 27, 2019 09:22
--- NOTE | 2019-03-27 10:11 | Nephrology Progress Note ---
Assessment/Plan Problem List: (1) Urinary retention (2) Leukocytosis (3) UTI (urinary tract infection) Assessment Urinary Retention UTI / Leukocytosis Bibasilar Atx Electrolyte Imbalance Plan TODAY'S LABS PENDING Uro eval done correct lytes Flomax monitor renal parameters Subjective ROS Limited/Unobtainable: No Constitutional: Reports: malaise Objective Objective Last 24 Hour Vital Signs Date Time Temp Pulse Resp B/P (MAP) Pulse Ox O2 Delivery O2 Flow Rate FiO2 03/27/19 09:04 Room Air 03/27/19 09:00 Room Air 03/27/19 08:00 98.0 101 20 144/93 (110) 95 03/27/19 04:00 98.7 96 18 147/72 (97) 95 03/27/19 00:00 99.2 103 18 141/80 (100) 95 03/26/19 20:00 99.2 103 18 141/80 (100) 95 03/26/19 16:00 98.4 107 18 142/82 (102) 94 03/26/19 12:00 97.4 105 18 131/107 (115) 95 Intake and Output 03/26/19 03/27/19 19:00 07:00 Intake Total 200 ml Output Total 1000 ml 700 ml Balance -1000 ml -500 ml Intake Oral 200 ml Output Urine Total 1000 ml 700 ml Height (Feet): 5 Height (Inches): 4.00 Weight (Pounds): 192 General Appearance: no apparent distress Cardiovascular: tachycardia Respiratory/Chest: decreased breath sounds Abdomen: soft Genitourinary/Rectal: other - Richard Spaulding MD Mar 27, 2019 10:11
[2019-03-27 10:30] LABS: HEMATOCRIT 40.3 % (42.0-52.0); HEMOGLOBIN 14.9 G/DL (14.2-18.0); MEAN CORPUSCULAR VOLUME 85 FL (80-99); PLATELET COUNT 148 K/UL (150-450); RED BLOOD COUNT 4.73 M/UL (4.70-6.10); RED CELL DISTRIBUTION WIDTH 12.4 % (11.6-14.8); WHITE BLOOD COUNT 21.9 K/UL (4.8-10.8)
[2019-03-27 10:53] LABS: ALANINE AMINOTRANSFERASE 22 U/L (12-78); ALBUMIN 2.8 G/DL (3.4-5.0); ALBUMIN/GLOBULIN RATIO 0.6 (1.0-2.7); ALKALINE PHOSPHATASE 70 U/L (46-116); ANION GAP 7 mmol/L (5-15); ASPARTATE AMINO TRANSFERASE 12 U/L (15-37); BILIRUBIN,TOTAL 0.5 MG/DL (0.2-1.0); BLOOD UREA NITROGEN 18 mg/dL (7-18); CALCIUM 8.9 MG/DL (8.5-10.1); CARBON DIOXIDE 26 MMOL/L (21-32); CHLORIDE 106 MMOL/L (98-107); CHOLESTEROL 154 MG/DL (< 200); CREATININE 1.1 MG/DL (0.55-1.30); HDL CHOLESTEROL 8 MG/DL (40-60); PHOSPHORUS 1.2 MG/DL (2.5-4.9); POTASSIUM 3.5 MMOL/L (3.5-5.1); SODIUM 139 MMOL/L (136-145); TRIGLYCERIDES 411 MG/DL (30-150)
[2019-03-27 12:00] VITALS: BP 139/88
--- NOTE | 2019-03-27 12:43 | Infectious Diseases Prog Note ---
Assessment/Plan Assessment/Plan IMPRESSION: Sepsis with leukocytosis and tachycardia; UTI. Urinary retention, upper respiratory symptoms, hypertension, hyperlipidemia. RECOMMENDATION: Continue with ceftriaxone. With F/U UC & renal US Subjective ROS Limited/Unobtainable: No Constitutional: Reports: no symptoms Gastrointestinal/Abdominal: Reports: no symptoms Genitourinary: Reports: other - had Swanson catheter yesterday Allergies: Coded Allergies: No Known Allergies (Unverified , 04/21/16) Objective Vital Signs Last 24 Hour Vital Signs Date Time Temp Pulse Resp B/P (MAP) Pulse Ox O2 Delivery O2 Flow Rate FiO2 03/27/19 12:00 99.3 101 20 139/88 (105) 96 03/27/19 09:04 Room Air 03/27/19 09:00 Room Air 03/27/19 08:00 98.0 101 20 144/93 (110) 95 03/27/19 04:00 98.7 96 18 147/72 (97) 95 03/27/19 00:00 99.2 103 18 141/80 (100) 95 03/26/19 20:00 99.2 103 18 141/80 (100) 95 03/26/19 16:00 98.4 107 18 142/82 (102) 94 Height (Feet): 5 Height (Inches): 4.00 Weight (Pounds): 192 General Appearance: no acute distress Respiratory/Chest: lungs clear Abdomen: soft, non tender Genitourinary: other - catheter Extremities: no edema Neurologic/Psychiatric: alert, oriented x 3, responsive Microbiology Date/Time Source Procedure Growth Status 03/26/19 00:30 Blood Blood Culture - Preliminary NO GROWTH AFTER 24 HOURS Resulted 03/26/19 00:15 Blood Blood Culture - Preliminary NO GROWTH AFTER 24 HOURS Resulted 03/26/19 00:15 Nasal Nares - Final Complete 03/26/19 00:15 Nasal Nares - Final Complete 03/26/19 00:15 Urine,Clean Catch Urine Culture - Preliminary Gram Negative Bacillus 1 Resulted Laboratory Tests Test 03/27/19 10:15 White Blood Count 21.9 K/UL (4.8-10.8) H Red Blood Count 4.73 M/UL (4.70-6.10) Hemoglobin 14.9 G/DL (14.2-18.0) Hematocrit 40.3 % (42.0-52.0) L Mean Corpuscular Volume 85 FL (80-99) Mean Corpuscular Hemoglobin 31.6 PG (27.0-31.0) H Mean Corpuscular Hemoglobin Concent 37.0 G/DL (32.0-36.0) H Red Cell Distribution Width 12.4 % (11.6-14.8) Platelet Count 148 K/UL (150-450) L Mean Platelet Volume 6.2 FL (6.5-10.1) L Neutrophils (%) (Auto) % (45.0-75.0) Lymphocytes (%) (Auto) % (20.0-45.0) Monocytes (%) (Auto) % (1.0-10.0) Eosinophils (%) (Auto) % (0.0-3.0) Basophils (%) (Auto) % (0.0-2.0) Differential Total Cells Counted 100 Neutrophils % (Manual) 83 % (45-75) H Lymphocytes % (Manual) 9 % (20-45) L Monocytes % (Manual) 8 % (1-10) Eosinophils % (Manual) 0 % (0-3) Basophils % (Manual) 0 % (0-2) Band Neutrophils 0 % (0-8) Platelet Estimate Decreased L Platelet Morphology Normal Red Blood Cell Morphology Normal Sodium Level 139 MMOL/L (136-145) Potassium Level 3.5 MMOL/L (3.5-5.1) Chloride Level 106 MMOL/L (98-107) Carbon Dioxide Level 26 MMOL/L (21-32) Anion Gap 7 mmol/L (5-15) Blood Urea Nitrogen 18 mg/dL (7-18) Creatinine 1.1 MG/DL (0.55-1.30) Estimat Glomerular Filtration Rate > 60 mL/min (>60) Glucose Level 153 MG/DL (74-106) H Uric Acid 3.7 MG/DL (2.6-7.2) Calcium Level 8.9 MG/DL (8.5-10.1) Phosphorus Level 1.2 MG/DL (2.5-4.9) L Magnesium Level 1.9 MG/DL (1.8-2.4) Total Bilirubin 0.5 MG/DL (0.2-1.0) Aspartate Amino Transf (AST/SGOT) 12 U/L (15-37) L Alanine Aminotransferase (ALT/SGPT) 22 U/L (12-78) Alkaline Phosphatase 70 U/L (46-116) C-Reactive Protein, Quantitative 26.7 mg/dL (0.00-0.90) H Pro-B-Type Natriuretic Peptide 171 pg/mL (0-125) H Total Protein 7.2 G/DL (6.4-8.2) Albumin 2.8 G/DL (3.4-5.0) L Globulin 4.4 g/dL Albumin/Globulin Ratio 0.6 (1.0-2.7) L Triglycerides Level 411 MG/DL (30-150) H Cholesterol Level 154 MG/DL (< 200) LDL Cholesterol 47 mg/dL (<100) HDL Cholesterol 8 MG/DL (40-60) L Cholesterol/HDL Ratio 19.3 (3.3-4.4) H Thyroid Stimulating Hormone (TSH) 0.735 uiU/mL (0.358-3.740) Current Medications Medications (Trade) Dose Ordered Sig/[place] Route PRN Reason Start Time Stop Time Status Last Admin Dose Admin Acetaminophen (Tylenol) 500 mg Q6H PRN ORAL Mild Pain/Temp > 100.5 03/26/19 08:30 04/25/19 08:29 03/26/19 08:57 Bisacodyl (Dulcolax) 10 mg DAILY ORAL 03/26/19 09:00 04/25/19 08:59 03/27/19 08:45 Ceftriaxone Sodium 1 gm/ Dextrose 55 ml @ 110 mls/hr Q24H IVPB 03/27/19 02:00 04/03/19 01:59 03/27/19 02:06 Docusate Sodium (Colace) 100 mg TID ORAL 03/26/19 13:00 04/25/19 08:59 03/27/19 08:45 Ondansetron HCl (Zofran) 4 mg Q6H PRN IVP Nausea & Vomiting 03/26/19 08:30 04/25/19 08:29 Pantoprazole (Protonix) 40 mg DAILY ORAL 03/26/19 09:00 04/25/19 08:59 03/27/19 08:45 Tamsulosin HCl (Flomax) 0.4 mg BEDTIME ORAL 03/27/19 21:00 04/26/19 20:59 Sabino Dawkins MD Mar 27, 2019 12:43
--- NOTE | 2019-03-27 14:24 | NUR ---
*-* DISCHARGE PLANNING *-* PATIENT HAS BEEN REFERRED TO: [facility] P: [phone] F: [phone] EFAX: [phone]
[2019-03-27 16:00] VITALS: BP 137/87
--- NOTE | 2019-03-27 16:30 | NUR ---
NURSE NOTES: During rounding pt requested to go outside to smoke since he hasn't smoke for the past 5 days. RN called Ana to inform. RN will carry on orders as indicated. I will f/u as needed.
--- NOTE | 2019-03-27 17:03 | Diagnostic Imaging Report ---
Indication: Abdominal pain Technique: Grayscale and duplex Doppler imaging of the abdomen performed. Comparison: None Findings: The liver is echogenic. Doppler interrogation of the main portal vein shows patency with hepatopedal, monophasic flow. There is no biliary ductal dilatation identified. Gallbladder is notable for gallbladder sludge and polyps. CBD is 3.3 mm. There demonstrated part of the pancreas, aorta and IVC show no definite abnormalities. Both kidneys appear unremarkable. Urinary bladder is dilated and internal debris versus blood noted. There is no hydronephrosis. There is a 1 cm right renal cyst. IMPRESSION: Fatty liver. Gallbladder sludge and polyps. Distended urinary bladder with internal debris versus blood. Correlate clinically. Right renal cyst
--- NOTE | 2019-03-27 17:17 | NUR ---
CASE MANAGEMENT: INITIAL REVIEW 53YR OLD MALE FROM HOME CC: FLU LIKE SYMPTOMS SI:UTI . LEUKOCYTOSIS 99.3 123 16 111/65 98% ON RA WBC 23.4 IS:IVF NS BOLUS X3 IV ROCEPHIN X1 ZITHROMAX PO X1 FLOMAX PO X1 TYLENOL PO X1 MOTRIN PO X1 CHEST X-RAY US ABD \: 3E MED SURG UNIT PLAN: PLACEMENT
[2019-03-27 20:00] VITALS: BP 143/87
--- NOTE | 2019-03-27 20:09 | NUR ---
HAND-OFF: Report given to Kwabena SIMTH, patient in stable condition. I will f/u as needed.
--- NOTE | 2019-03-27 20:11 | NUR ---
NURSE NOTES: Received report from Syl SMITH. Patient is a/o x4, awake, in bed. Patient able to known his needs and verbally responsive. No c/o pain or any distress noted at this time. IV site is intact and patent. Swanson cath in place draining to gravity. Bed is on alarm, locked, lowest position. Call light within reach. Will continue to monitor.
[2019-03-27] MEDS: Tamsulosin 0.4mg cap ORAL SCH (20:33)
--- NOTE | 2019-03-27 21:26 | General Progress Note ---
Assessment/Plan Assessment/Plan: Assessment - resolved vomiting - bladder outlet obstruction - leukocytosis Recommendations - po as toleratied - urology f/u Subjective Allergies: Coded Allergies: No Known Allergies (Unverified , 04/21/16) Subjective Got bustos yesterday feels much better no vomiting Objective Last 24 Hour Vital Signs Date Time Temp Pulse Resp B/P (MAP) Pulse Ox O2 Delivery O2 Flow Rate FiO2 03/27/19 16:00 98.8 82 20 137/87 (104) 98 03/27/19 12:00 99.3 101 20 139/88 (105) 96 03/27/19 09:04 Room Air 03/27/19 09:00 Room Air 03/27/19 08:00 98.0 101 20 144/93 (110) 95 03/27/19 04:00 98.7 96 18 147/72 (97) 95 03/27/19 00:00 99.2 103 18 141/80 (100) 95 Intake and Output 03/26/19 03/27/19 19:00 07:00 Intake Total 200 ml Output Total 1000 ml 700 ml Balance -1000 ml -500 ml Intake Oral 200 ml Output Urine Total 1000 ml 700 ml Laboratory Tests 03/27/19 10:15: White Blood Count 21.9H, Red Blood Count 4.73, Hemoglobin 14.9, Hematocrit 40.3L , Mean Corpuscular Volume 85, Mean Corpuscular Hemoglobin 31.6H, Mean Corpuscular Hemoglobin Concent 37.0H, Red Cell Distribution Width 12.4, Platelet Count 148L, Mean Platelet Volume 6.2L, Neutrophils (%) (Auto) , Lymphocytes (%) (Auto) , Monocytes (%) (Auto) , Eosinophils (%) (Auto) , Basophils (%) (Auto) , Differential Total Cells Counted 100, Neutrophils % ( Manual) 83H, Lymphocytes % (Manual) 9L, Monocytes % (Manual) 8, Eosinophils % ( Manual) 0, Basophils % (Manual) 0, Band Neutrophils 0, Platelet Estimate DecreasedL, Platelet Morphology Normal, Red Blood Cell Morphology Normal, Sodium Level 139, Potassium Level 3.5, Chloride Level 106, Carbon Dioxide Level 26, Anion Gap 7, Blood Urea Nitrogen 18, Creatinine 1.1, Estimat Glomerular Filtration Rate > 60, Glucose Level 153H, Uric Acid 3.7, Calcium Level 8.9, Phosphorus Level 1.2L, Magnesium Level 1.9, Total Bilirubin 0.5, Aspartate Amino Transf (AST/SGOT) 12L, Alanine Aminotransferase (ALT/SGPT) 22, Alkaline Phosphatase 70, C-Reactive Protein, Quantitative 26.7H, Pro-B-Type Natriuretic Peptide 171H, Total Protein 7.2, Albumin 2.8L, Globulin 4.4, Albumin/Globulin Ratio 0.6L, Triglycerides Level 411H, Cholesterol Level 154, LDL Cholesterol 47 , HDL Cholesterol 8L, Cholesterol/HDL Ratio 19.3H, Thyroid Stimulating Hormone ( TSH) 0.735 Height (Feet): 5 Height (Inches): 4.00 Weight (Pounds): 192 Margot Calixto MD Mar 27, 2019 21:26
--- NOTE | 2019-03-27 21:59 | General Progress Note ---
Assessment/Plan Problem List: (1) Gastritis ICD Codes: K29.70 - Gastritis, unspecified, without bleeding SNOMED: 5236225 (2) Low back pain ICD Codes: M54.5 - Low back pain SNOMED: 136016254 (3) Constipation ICD Codes: K59.00 - Constipation, unspecified SNOMED: 74948661 (4) Leukocytosis ICD Codes: D72.829 - Elevated white blood cell count, unspecified SNOMED: 640065809, 931287835 Qualifiers: Qualified Codes: D72.829 - Elevated white blood cell count, unspecified (5) UTI (urinary tract infection) ICD Codes: N39.0 - Urinary tract infection, site not specified SNOMED: 35057354 Qualifiers: Qualified Codes: N30.01 - Acute cystitis with hematuria (6) Urinary retention ICD Codes: R33.9 - Retention of urine, unspecified SNOMED: 324232119 Status: progressing Assessment/Plan: had bustos in for urinary retention arf uti afebrile iv abx for uti Subjective ROS Limited/Unobtainable: Yes Allergies: Coded Allergies: No Known Allergies (Unverified , 04/21/16) Objective Last 24 Hour Vital Signs Date Time Temp Pulse Resp B/P (MAP) Pulse Ox O2 Delivery O2 Flow Rate FiO2 03/27/19 16:00 98.8 82 20 137/87 (104) 98 03/27/19 12:00 99.3 101 20 139/88 (105) 96 03/27/19 09:04 Room Air 03/27/19 09:00 Room Air 03/27/19 08:00 98.0 101 20 144/93 (110) 95 03/27/19 04:00 98.7 96 18 147/72 (97) 95 03/27/19 00:00 99.2 103 18 141/80 (100) 95 Intake and Output 03/26/19 03/27/19 19:00 07:00 Intake Total 200 ml Output Total 1000 ml 700 ml Balance -1000 ml -500 ml Intake Oral 200 ml Output Urine Total 1000 ml 700 ml Laboratory Tests 03/27/19 10:15: White Blood Count 21.9H, Red Blood Count 4.73, Hemoglobin 14.9, Hematocrit 40.3L , Mean Corpuscular Volume 85, Mean Corpuscular Hemoglobin 31.6H, Mean Corpuscular Hemoglobin Concent 37.0H, Red Cell Distribution Width 12.4, Platelet Count 148L, Mean Platelet Volume 6.2L, Neutrophils (%) (Auto) , Lymphocytes (%) (Auto) , Monocytes (%) (Auto) , Eosinophils (%) (Auto) , Basophils (%) (Auto) , Differential Total Cells Counted 100, Neutrophils % ( Manual) 83H, Lymphocytes % (Manual) 9L, Monocytes % (Manual) 8, Eosinophils % ( Manual) 0, Basophils % (Manual) 0, Band Neutrophils 0, Platelet Estimate DecreasedL, Platelet Morphology Normal, Red Blood Cell Morphology Normal, Sodium Level 139, Potassium Level 3.5, Chloride Level 106, Carbon Dioxide Level 26, Anion Gap 7, Blood Urea Nitrogen 18, Creatinine 1.1, Estimat Glomerular Filtration Rate > 60, Glucose Level 153H, Uric Acid 3.7, Calcium Level 8.9, Phosphorus Level 1.2L, Magnesium Level 1.9, Total Bilirubin 0.5, Aspartate Amino Transf (AST/SGOT) 12L, Alanine Aminotransferase (ALT/SGPT) 22, Alkaline Phosphatase 70, C-Reactive Protein, Quantitative 26.7H, Pro-B-Type Natriuretic Peptide 171H, Total Protein 7.2, Albumin 2.8L, Globulin 4.4, Albumin/Globulin Ratio 0.6L, Triglycerides Level 411H, Cholesterol Level 154, LDL Cholesterol 47 , HDL Cholesterol 8L, Cholesterol/HDL Ratio 19.3H, Thyroid Stimulating Hormone ( TSH) 0.735 Height (Feet): 5 Height (Inches): 4.00 Weight (Pounds): 192 Cardiovascular: normal peripheral pulses Respiratory/Chest: lungs clear Abdomen: soft Master Perez MD Mar 27, 2019 21:59
[2019-03-27] MEDS: Potassium Phosphate 15mm/250ml 250 ML IVPB SCH (23:06)
[2019-03-28] VITALS: BP 138/74
--- NOTE | 2019-03-28 00:50 | NUR ---
NURSE NOTES: patient c/o Left chest pain and Lt side of headache 08/01. Called to Dr. Perez and left message. Given Tylenol 500mg PO prn for headache.
--- NOTE | 2019-03-28 00:51 | NUR ---
NURSE NOTES: patient VS: BP 149/84, HR 84, O2 95 % on room air. Will continue to monitor.
[2019-03-28] MEDS: Acetaminophen 500mg (ES) tab ORAL PRN (00:56)
--- NOTE | 2019-03-28 01:25 | NUR ---
NURSE NOTES: Rounds made. Pt sleeping snoring. No sign of acute distress noted. Will continue to monitor.
[2019-03-28] MEDS: cefTRIAXone 1 GM in D5W 55 ML IVPB SCH (03:01)
[2019-03-28] MEDS: Potassium Phosphate 15mm/250ml 250 ML IVPB SCH (03:41)
[2019-03-28 04:00] VITALS: BP 146/84
[2019-03-28 05:27] LABS: ALANINE AMINOTRANSFERASE 30 U/L (12-78); ALBUMIN 2.5 G/DL (3.4-5.0); ALBUMIN/GLOBULIN RATIO 0.6 (1.0-2.7); ALKALINE PHOSPHATASE 64 U/L (46-116); ANION GAP 9 mmol/L (5-15); ASPARTATE AMINO TRANSFERASE 18 U/L (15-37); BILIRUBIN,TOTAL 0.5 MG/DL (0.2-1.0); BLOOD UREA NITROGEN 18 mg/dL (7-18); CALCIUM 8.1 MG/DL (8.5-10.1); CARBON DIOXIDE 25 MMOL/L (21-32); CHLORIDE 107 MMOL/L (98-107); CREATININE 1.1 MG/DL (0.55-1.30); PHOSPHORUS 3.5 MG/DL (2.5-4.9); POTASSIUM 3.8 MMOL/L (3.5-5.1); SODIUM 141 MMOL/L (136-145)
[2019-03-28 05:34] LABS: BASOPHILS % (AUTO) 0.7 % (0.0-2.0); EOSINOPHILS % (AUTO) 1.5 % (0.0-3.0); HEMATOCRIT 37.2 % (42.0-52.0); HEMOGLOBIN 13.8 G/DL (14.2-18.0); LYMPHOCYTES % (AUTO) 15.8 % (20.0-45.0); MEAN CORPUSCULAR VOLUME 84 FL (80-99); MONOCYTES % (AUTO) 10.1 % (1.0-10.0); NEUTROPHILS % (AUTO) 71.9 % (45.0-75.0); PLATELET COUNT 152 K/UL (150-450); RED BLOOD COUNT 4.41 M/UL (4.70-6.10); RED CELL DISTRIBUTION WIDTH 12.7 % (11.6-14.8); WHITE BLOOD COUNT 14.2 K/UL (4.8-10.8)
[2019-03-28] MEDS ORDERED: traMADol 50mg tab ORAL PRN (06:15)
--- NOTE | 2019-03-28 07:18 | Hematology/Onc Progress Note ---
Assessment/Plan Assessment/Plan Assessment and Recs # Leukocytosis -- likely is related to urinary obstruction, uti --> has been started on abx --> as per ID care --> s/p bustos placement/insertion -_> wbc 22-->14 # Thrombocytopenia likely due to underlying infection --> hepatitis and hiv have been ordered --> imaging has been noted --> plt trend 133-->121k-->152 # Hypokalemia --> has been given Kcl # Acute cystitis with hematuria --> is s/p ivf # Tachycardia --> likely due to above uti # Superimposed infiltrates bilaterally, will start ceftriaxone --> on abx --> per id recs Appreciate consultation and dw Rn Subjective Constitutional: Denies: no symptoms, chills, fever, malaise, weakness, other HEENT: Denies: no symptoms, eye pain, blurred vision, tearing, double vision, ear pain, ear discharge, nose pain, nose congestion, throat pain, throat swelling, mouth pain, mouth swelling, other Cardiovascular: Denies: no symptoms, chest pain, edema, irregular heart rate, lightheadedness, palpitations, syncope, other Respiratory: Denies: no symptoms, cough, shortness of breath, SOB with excertion, SOB at rest, sputum, wheezing, other Gastrointestinal/Abdominal: Denies: no symptoms, abdomen distended, abdominal pain, black stools, tarry stools, blood in stool, constipated, diarrhea, difficulty swallowing, nausea, poor appetite, poor fluid intake, rectal bleeding , vomiting, other Genitourinary: Denies: no symptoms, burning, discharge, frequency, flank pain, hematuria, incontinence, pain, urgency, other Neurologic/Psychiatric: Denies: no symptoms, anxiety, depressed, emotional problems, headache, numbness, paresthesia, pre-existing deficit, seizure, tingling, tremors, weakness, other Hematologic/Lymphatic: Denies: no symptoms, anemia, easy bleeding, easy bruising, adenopathy, other Allergies: Coded Allergies: No Known Allergies (Unverified , 04/21/16) Subjective 2/3: no bleeding, no f/c, no events, no night sweats 2/4: no night sweats, labs reviewed, no major bleeding Objective Objective Current Medications Medications (Trade) Dose Ordered Sig/Selma Route PRN Reason Start Time Stop Time Status Last Admin Dose Admin Acetaminophen (Tylenol) 500 mg Q6H PRN ORAL Mild Pain/Temp > 100.5 03/26/19 08:30 04/25/19 08:29 03/28/19 00:56 Bisacodyl (Dulcolax) 10 mg DAILY ORAL 03/26/19 09:00 04/25/19 08:59 03/27/19 08:45 Ceftriaxone Sodium 1 gm/ Dextrose 55 ml @ 110 mls/hr Q24H IVPB 03/27/19 02:00 04/03/19 01:59 03/28/19 03:01 Docusate Sodium (Colace) 100 mg TID ORAL 03/26/19 13:00 04/25/19 08:59 03/27/19 14:45 Ondansetron HCl (Zofran) 4 mg Q6H PRN IVP Nausea & Vomiting 03/26/19 08:30 04/25/19 08:29 Pantoprazole (Protonix) 40 mg DAILY ORAL 03/26/19 09:00 04/25/19 08:59 03/27/19 08:45 Tamsulosin HCl (Flomax) 0.4 mg BEDTIME ORAL 03/27/19 21:00 04/26/19 20:59 03/27/19 20:33 Tramadol HCl (Ultram) 50 mg Q8H PRN ORAL moderate pain 03/28/19 06:15 04/04/19 06:14 Last 24 Hour Vital Signs Date Time Temp Pulse Resp B/P (MAP) Pulse Ox O2 Delivery O2 Flow Rate FiO2 03/28/19 04:00 98.1 80 17 146/84 (104) 95 03/28/19 00:00 98.6 83 17 138/74 (95) 95 03/27/19 21:00 Room Air 03/27/19 20:00 98.0 84 15 143/87 (105) 95 03/27/19 16:00 98.8 82 20 137/87 (104) 98 03/27/19 12:00 99.3 101 20 139/88 (105) 96 03/27/19 09:04 Room Air 03/27/19 09:00 Room Air 03/27/19 08:00 98.0 101 20 144/93 (110) 95 03/27/19 04:00 98.7 96 18 147/72 (97) 95 03/27/19 00:00 99.2 103 18 141/80 (100) 95 03/26/19 20:00 99.2 103 18 141/80 (100) 95 03/26/19 16:00 98.4 107 18 142/82 (102) 94 03/26/19 12:00 97.4 105 18 131/107 (115) 95 03/26/19 09:00 Room Air 03/26/19 08:00 97.8 108 18 139/88 (105) 97 Intake and Output 03/27/19 03/28/19 19:00 07:00 Intake Total 475 ml 1030.0 ml Output Total 450 ml 550 ml Balance 25 ml 480.0 ml Intake Oral 475 ml 600 ml IV Total 430.0 ml Output Urine Total 450 ml 550 ml Labs Test 03/26/19 00:15 03/26/19 08:45 03/27/19 10:15 03/28/19 04:45 White Blood Count 23.4 K/UL (4.8-10.8) 25.3 K/UL (4.8-10.8) 21.9 K/UL (4.8-10.8) 14.2 K/UL (4.8-10.8) Red Blood Count 4.74 M/UL (4.70-6.10) 4.55 M/UL (4.70-6.10) 4.73 M/UL (4.70-6.10) 4.41 M/UL (4.70-6.10) Hemoglobin 15.3 G/DL (14.2-18.0) 14.7 G/DL (14.2-18.0) 14.9 G/DL (14.2-18.0) 13.8 G/DL (14.2-18.0) Hematocrit 40.5 % (42.0-52.0) 38.9 % (42.0-52.0) 40.3 % (42.0-52.0) 37.2 % (42.0-52.0) Mean Corpuscular Volume 86 FL (80-99) 86 FL (80-99) 85 FL (80-99) 84 FL (80- 99) Mean Corpuscular Hemoglobin 32.2 PG (27.0-31.0) 32.4 PG (27.0-31.0) 31.6 PG (27.0-31.0) 31.3 PG (27.0-31.0) Mean Corpuscular Hemoglobin Concent 37.7 G/DL (32.0-36.0) 37.9 G/DL (32.0-36.0) 37.0 G/DL (32.0-36.0) 37.0 G/DL (32.0-36.0) Red Cell Distribution Width 12.3 % (11.6-14.8) 12.1 % (11.6-14.8) 12.4 % (11.6-14.8) 12.7 % (11.6-14.8) Platelet Count 133 K/UL (150-450) 121 K/UL (150-450) 148 K/UL (150-450) 152 K/UL (150-450) Mean Platelet Volume 6.2 FL (6.5-10.1) 5.9 FL (6.5-10.1) 6.2 FL (6.5-10.1) 6.2 FL (6.5-10.1) Neutrophils (%) (Auto) % (45.0-75.0) % (45.0-75.0) % (45.0-75.0) 71.9 % (45.0-75.0) Lymphocytes (%) (Auto) % (20.0-45.0) % (20.0-45.0) % (20.0-45.0) 15.8 % (20.0-45.0) Monocytes (%) (Auto) % (1.0-10.0) % (1.0-10.0) % (1.0-10.0) 10.1 % (1.0-10.0) Eosinophils (%) (Auto) % (0.0-3.0) % (0.0-3.0) % (0.0-3.0) 1.5 % (0.0-3.0) Basophils (%) (Auto) % (0.0-2.0) % (0.0-2.0) % (0.0-2.0) 0.7 % (0.0-2.0) Differential Total Cells Counted 100 100 100 Neutrophils % (Manual) 84 % (45-75) 82 % (45-75) 83 % (45-75) Lymphocytes % (Manual) 10 % (20-45) 5 % (20-45) 9 % (20-45) Monocytes % (Manual) 5 % (1-10) 6 % (1-10) 8 % (1-10) Eosinophils % (Manual) 0 % (0-3) 0 % (0-3) 0 % (0-3) Basophils % (Manual) 1 % (0-2) 0 % (0-2) 0 % (0-2) Band Neutrophils 0 % (0-8) 7 % (0-8) 0 % (0-8) Platelet Estimate Decreased Decreased Decreased Platelet Morphology Normal Normal Normal Urine Color Brown Urine Appearance Clear Urine pH 5 (4.5-8.0) Urine Specific [place] 1.025 (1.005-1.035) Urine Protein 3+ (NEGATIVE) Urine Glucose (UA) Negative (NEGATIVE) Urine Ketones 1+ (NEGATIVE) Urine Blood 5+ (NEGATIVE) Urine Nitrite Positive (NEGATIVE) Urine Bilirubin 1+ (NEGATIVE) Urine Ictotest Negative (NEGATIVE) Urine Urobilinogen 4 MG/DL (0.0-1.0) Urine Leukocyte Esterase 3+ (NEGATIVE) Urine RBC 15-20 /HPF (0 - 0) Urine WBC Tntc /HPF (0 - 0) Urine Squamous Epithelial Cells Occasional /LPF Urine Bacteria Few /HPF (NONE) Urine Mucus Few /LPF (NONE/OCC) Sodium Level 137 MMOL/L (136-145) 139 MMOL/L (136-145) 141 MMOL/L (136-145) Potassium Level 3.3 MMOL/L (3.5-5.1) 3.5 MMOL/L (3.5-5.1) 3.8 MMOL/L (3.5-5.1) Chloride Level 98 MMOL/L (98-107) 106 MMOL/L (98-107) 107 MMOL/L (98-107) Carbon Dioxide Level 28 MMOL/L (21-32) 26 MMOL/L (21-32) 25 MMOL/L (21-32) Anion Gap 11 mmol/L (5-15) 7 mmol/L (5-15) 9 mmol/L (5-15) Blood Urea Nitrogen 12 mg/dL (7-18) 18 mg/dL (7-18) 18 mg/dL (7-18) Creatinine 1.2 MG/DL (0.55-1.30) 1.1 MG/DL (0.55-1.30) 1.1 MG/DL (0.55-1.30) Estimat Glomerular Filtration Rate > 60 mL/min (>60) > 60 mL/min (>60) > 60 mL/min (>60) Glucose Level 139 MG/DL (74-106) 153 MG/DL (74-106) 122 MG/DL (74-106) Lactic Acid Level 1.10 mmol/L (0.4-2.0) Calcium Level 8.5 MG/DL (8.5-10.1) 8.9 MG/DL (8.5-10.1) 8.1 MG/DL (8.5-10.1) Total Bilirubin 1.0 MG/DL (0.2-1.0) 0.5 MG/DL (0.2-1.0) 0.5 MG/DL (0.2-1.0) Aspartate Amino Transf (AST/SGOT) 14 U/L (15-37) 12 U/L (15-37) 18 U/L (15-37) Alanine Aminotransferase (ALT/SGPT) 22 U/L (12-78) 22 U/L (12-78) 30 U/L (12-78) Alkaline Phosphatase 62 U/L (46-116) 70 U/L (46-116) 64 U/L (46-116) Troponin I 0.000 ng/mL (0.000-0.056) Pro-B-Type Natriuretic Peptide 184 pg/mL (0-125) 171 pg/mL (0-125) Total Protein 7.0 G/DL (6.4-8.2) 7.2 G/DL (6.4-8.2) 6.4 G/DL (6.4-8.2) Albumin 3.1 G/DL (3.4-5.0) 2.8 G/DL (3.4-5.0) 2.5 G/DL (3.4-5.0) Globulin 3.9 g/dL 4.4 g/dL 3.9 g/dL Albumin/Globulin Ratio 0.8 (1.0-2.7) 0.6 (1.0-2.7) 0.6 (1.0-2.7) Red Blood Cell Morphology Normal Normal HIV (1&2) Antibody Rapid Negative (NEGATIVE) Uric Acid 3.7 MG/DL (2.6-7.2) Phosphorus Level 1.2 MG/DL (2.5-4.9) 3.5 MG/DL (2.5-4.9) Magnesium Level 1.9 MG/DL (1.8-2.4) 1.7 MG/DL (1.8-2.4) C-Reactive Protein, Quantitative 26.7 mg/dL (0.00-0.90) Triglycerides Level 411 MG/DL (30-150) Cholesterol Level 154 MG/DL (< 200) LDL Cholesterol 47 mg/dL (<100) HDL Cholesterol 8 MG/DL (40-60) Cholesterol/HDL Ratio 19.3 (3.3-4.4) Thyroid Stimulating Hormone (TSH) 0.735 uiU/mL (0.358-3.740) Height (Feet): 5 Height (Inches): 4.00 Weight (Pounds): 192 Objective Physical Exam General: well appearing, no apparent distress, alert Neck: supple, thyroid normal, supple Respiratory: lungs clear, no respiratory distress CV: normal peripheral pulses, no edema, no gallop Gastrointestinal: non tender, soft, no guarding, no rebound Musculoskeletal: normal inspection Neurologic: alert, oriented x3 Psychiatric: mood/affect normal Skin: no rash, warm/dry Vinnie Lane MD Mar 28, 2019 07:18
--- NOTE | 2019-03-28 07:25 | NUR ---
HAND-OFF: Report given to Syl SMITH. Patient in stable condition.
[2019-03-28 08:00] VITALS: BP 167/88
--- NOTE | 2019-03-28 08:00 | NUR ---
NURSE NOTES: Received report from Kwabena SMITH, pt a/a/o x4 seating in bed with no signs of distress or other issues at this time. per report over night c/o of headache, Dr. Perez is aware. IV on the right AC gauge #20 heplock. Swanson cath draining to gravity. pt is able to ambulate around the room with steady gait. call light within reach, bed in lowest position. side rales up x2. I will f/u as needed.
[2019-03-28] MEDS: Bisacodyl EC 5mg tab ORAL SCH (09:44)
[2019-03-28] MEDS: Docusate 100mg cap ORAL SCH ×3 (09:44→18:21)
--- NOTE | 2019-03-28 11:42 | Infectious Diseases Prog Note ---
Assessment/Plan Assessment/Plan IMPRESSION: Sepsis with leukocytosis and tachycardia;improving E. coli UTI. Urinary retention, upper respiratory symptoms, hypertension, hyperlipidemia. Fatty liver RECOMMENDATION: Can be discharge with PO Cipro X 5 days Subjective ROS Limited/Unobtainable: No Constitutional: Reports: no symptoms Respiratory: Reports: no symptoms Cardiovascular: Reports: no symptoms Gastrointestinal/Abdominal: Reports: no symptoms Genitourinary: Reports: no symptoms Allergies: Coded Allergies: No Known Allergies (Unverified , 04/21/16) Objective Vital Signs Last 24 Hour Vital Signs Date Time Temp Pulse Resp B/P (MAP) Pulse Ox O2 Delivery O2 Flow Rate FiO2 03/28/19 09:00 Room Air 03/28/19 08:00 98.5 97 20 167/88 (114) 97 03/28/19 04:00 98.1 80 17 146/84 (104) 95 03/28/19 00:00 98.6 83 17 138/74 (95) 95 03/27/19 21:00 Room Air 03/27/19 20:00 98.0 84 15 143/87 (105) 95 03/27/19 16:00 98.8 82 20 137/87 (104) 98 03/27/19 12:00 99.3 101 20 139/88 (105) 96 Height (Feet): 5 Height (Inches): 4.00 Weight (Pounds): 192 General Appearance: no acute distress HEENT: mucous membranes moist Respiratory/Chest: lungs clear Cardiovascular: normal rate Abdomen: soft, non tender Genitourinary: other - Swanson catheter Extremities: no edema Neurologic/Psychiatric: alert, oriented x 3, responsive Microbiology Date/Time Source Procedure Growth Status 03/26/19 00:30 Blood Blood Culture - Preliminary NO GROWTH AFTER 48 HOURS Resulted 03/26/19 00:15 Blood Blood Culture - Preliminary NO GROWTH AFTER 48 HOURS Resulted 03/26/19 00:15 Nasal Nares - Final Complete 03/26/19 00:15 Nasal Nares - Final Complete 03/26/19 00:15 Urine,Clean Catch Urine Culture - Preliminary Escherichia Coli Resulted Laboratory Tests Test 03/28/19 04:45 White Blood Count 14.2 K/UL (4.8-10.8) H Red Blood Count 4.41 M/UL (4.70-6.10) L Hemoglobin 13.8 G/DL (14.2-18.0) L Hematocrit 37.2 % (42.0-52.0) L Mean Corpuscular Volume 84 FL (80-99) Mean Corpuscular Hemoglobin 31.3 PG (27.0-31.0) H Mean Corpuscular Hemoglobin Concent 37.0 G/DL (32.0-36.0) H Red Cell Distribution Width 12.7 % (11.6-14.8) Platelet Count 152 K/UL (150-450) Mean Platelet Volume 6.2 FL (6.5-10.1) L Neutrophils (%) (Auto) 71.9 % (45.0-75.0) Lymphocytes (%) (Auto) 15.8 % (20.0-45.0) L Monocytes (%) (Auto) 10.1 % (1.0-10.0) H Eosinophils (%) (Auto) 1.5 % (0.0-3.0) Basophils (%) (Auto) 0.7 % (0.0-2.0) Sodium Level 141 MMOL/L (136-145) Potassium Level 3.8 MMOL/L (3.5-5.1) Chloride Level 107 MMOL/L (98-107) Carbon Dioxide Level 25 MMOL/L (21-32) Anion Gap 9 mmol/L (5-15) Blood Urea Nitrogen 18 mg/dL (7-18) Creatinine 1.1 MG/DL (0.55-1.30) Estimat Glomerular Filtration Rate > 60 mL/min (>60) Glucose Level 122 MG/DL (74-106) H Calcium Level 8.1 MG/DL (8.5-10.1) L Phosphorus Level 3.5 MG/DL (2.5-4.9) Magnesium Level 1.7 MG/DL (1.8-2.4) L Total Bilirubin 0.5 MG/DL (0.2-1.0) Aspartate Amino Transf (AST/SGOT) 18 U/L (15-37) Alanine Aminotransferase (ALT/SGPT) 30 U/L (12-78) Alkaline Phosphatase 64 U/L (46-116) Total Protein 6.4 G/DL (6.4-8.2) Albumin 2.5 G/DL (3.4-5.0) L Globulin 3.9 g/dL Albumin/Globulin Ratio 0.6 (1.0-2.7) L Current Medications Medications (Trade) Dose Ordered Sig/Selma Route PRN Reason Start Time Stop Time Status Last Admin Dose Admin Acetaminophen (Tylenol) 500 mg Q6H PRN ORAL Mild Pain/Temp > 100.5 03/26/19 08:30 04/25/19 08:29 03/28/19 00:56 Bisacodyl (Dulcolax) 10 mg DAILY ORAL 03/26/19 09:00 04/25/19 08:59 03/28/19 09:44 Ceftriaxone Sodium 1 gm/ Dextrose 55 ml @ 110 mls/hr Q24H IVPB 03/27/19 02:00 04/03/19 01:59 03/28/19 03:01 Docusate Sodium (Colace) 100 mg TID ORAL 03/26/19 13:00 04/25/19 08:59 03/28/19 09:44 Ondansetron HCl (Zofran) 4 mg Q6H PRN IVP Nausea & Vomiting 03/26/19 08:30 04/25/19 08:29 Pantoprazole (Protonix) 40 mg DAILY ORAL 03/26/19 09:00 04/25/19 08:59 03/28/19 09:44 Tamsulosin HCl (Flomax) 0.4 mg BEDTIME ORAL 03/27/19 21:00 04/26/19 20:59 03/27/19 20:33 Tramadol HCl (Ultram) 50 mg Q8H PRN ORAL moderate pain 03/28/19 06:15 04/04/19 06:14 Sabino Dawkins MD Mar 28, 2019 11:42
[2019-03-28 11:43] VITALS: BP 142/95
--- NOTE | 2019-03-28 13:04 | NUR ---
CASE MANAGEMENT: REVIEW 03/28/2019 SI:SEPSIS WITH LEUKOCYTOSIS . ECOLI UTI . URINE RETENTION 98.6 81 18 142/95 96% ON RA WBC 14.2 CA+8.1 MG 1.7 IS:IV ROCEPHIN Q24HR PROTONIX PO QD FLOMAX PO QHS TYLENOL PO Q6HR/PRN IV KPHOS X2 BAGS \: 3E MED SURG UNIT PLAN: PLACEMENT PLAN: PLACEMENT OF COUDE CATHETER URINE CX-PENDING BLOOD CX-PENDING CONTROL VOMITING
--- NOTE | 2019-03-28 13:55 | NUR ---
*-* INSURANCE *-* ALL CLINICALS AND REVIEWS HAVE BEEN FAXED TO: [facility] no ref# yet # [phone] fax# [phone]
--- NOTE | 2019-03-28 14:45 | Nephrology Progress Note ---
Assessment/Plan Problem List: (1) Urinary retention (2) Leukocytosis (3) UTI (urinary tract infection) Assessment Urinary Retention UTI / Leukocytosis Bibasilar Atx Electrolyte Imbalance Plan TODAY'S LABS reviewed Uro eval done correct lytes Flomax monitor renal parameters fish oil for high Trygs Subjective ROS Limited/Unobtainable: No Constitutional: Reports: malaise Objective Objective Last 24 Hour Vital Signs Date Time Temp Pulse Resp B/P (MAP) Pulse Ox O2 Delivery O2 Flow Rate FiO2 03/28/19 11:43 98.6 81 18 142/95 (111) 96 03/28/19 09:00 Room Air 03/28/19 08:00 98.5 97 20 167/88 (114) 97 03/28/19 04:00 98.1 80 17 146/84 (104) 95 03/28/19 00:00 98.6 83 17 138/74 (95) 95 03/27/19 21:00 Room Air 03/27/19 20:00 98.0 84 15 143/87 (105) 95 03/27/19 16:00 98.8 82 20 137/87 (104) 98 Intake and Output 03/27/19 03/28/19 19:00 07:00 Intake Total 475 ml 1092.5 ml Output Total 450 ml 550 ml Balance 25 ml 542.5 ml Intake Oral 475 ml 600 ml IV Total 492.5 ml Output Urine Total 450 ml 550 ml Current Medications Medications (Trade) Dose Ordered Sig/Selma Route PRN Reason Start Time Stop Time Status Last Admin Dose Admin Acetaminophen (Tylenol) 500 mg Q6H PRN ORAL Mild Pain/Temp > 100.5 03/26/19 08:30 04/25/19 08:29 03/28/19 00:56 Bisacodyl (Dulcolax) 10 mg DAILY ORAL 03/26/19 09:00 04/25/19 08:59 03/28/19 09:44 Ceftriaxone Sodium 1 gm/ Dextrose 55 ml @ 110 mls/hr Q24H IVPB 03/27/19 02:00 04/03/19 01:59 03/28/19 03:01 Docusate Sodium (Colace) 100 mg TID ORAL 03/26/19 13:00 04/25/19 08:59 03/28/19 13:05 Ondansetron HCl (Zofran) 4 mg Q6H PRN IVP Nausea & Vomiting 03/26/19 08:30 04/25/19 08:29 Pantoprazole (Protonix) 40 mg DAILY ORAL 03/26/19 09:00 04/25/19 08:59 03/28/19 09:44 Tamsulosin HCl (Flomax) 0.4 mg BEDTIME ORAL 03/27/19 21:00 04/26/19 20:59 03/27/19 20:33 Tramadol HCl (Ultram) 50 mg Q8H PRN ORAL moderate pain 03/28/19 06:15 04/04/19 06:14 Laboratory Tests 03/28/19 04:45: White Blood Count 14.2H, Red Blood Count 4.41L, Hemoglobin 13.8L, Hematocrit 37.2L, Mean Corpuscular Volume 84, Mean Corpuscular Hemoglobin 31.3H, Mean Corpuscular Hemoglobin Concent 37.0H, Red Cell Distribution Width 12.7, Platelet Count 152, Mean Platelet Volume 6.2L, Neutrophils (%) (Auto) 71.9, Lymphocytes (%) (Auto) 15.8L, Monocytes (%) (Auto) 10.1H, Eosinophils (%) (Auto ) 1.5, Basophils (%) (Auto) 0.7, Sodium Level 141, Potassium Level 3.8, Chloride Level 107, Carbon Dioxide Level 25, Anion Gap 9, Blood Urea Nitrogen 18 , Creatinine 1.1, Estimat Glomerular Filtration Rate > 60, Glucose Level 122H, Calcium Level 8.1L, Phosphorus Level 3.5, Magnesium Level 1.7L, Total Bilirubin 0.5, Aspartate Amino Transf (AST/SGOT) 18, Alanine Aminotransferase (ALT/SGPT) 30, Alkaline Phosphatase 64, Total Protein 6.4, Albumin 2.5L, Globulin 3.9, Albumin/Globulin Ratio 0.6L Height (Feet): 5 Height (Inches): 4.00 Weight (Pounds): 192 General Appearance: no apparent distress Objective no change Richard Crews MD Mar 28, 2019 14:45
[2019-03-28 16:00] VITALS: BP 158/95
--- NOTE | 2019-03-28 17:44 | General Progress Note ---
Assessment/Plan Status: progressing Assessment/Plan: Assessment - resolved vomiting - bladder outlet obstruction - leukocytosis Recommendations - po as toleratied - urology f/u Subjective Allergies: Coded Allergies: No Known Allergies (Unverified , 04/21/16) Subjective Better tolerating PO Objective Last 24 Hour Vital Signs Date Time Temp Pulse Resp B/P (MAP) Pulse Ox O2 Delivery O2 Flow Rate FiO2 03/28/19 16:00 98.2 82 17 158/95 (116) 96 03/28/19 11:43 98.6 81 18 142/95 (111) 96 03/28/19 09:00 Room Air 03/28/19 08:00 98.5 97 20 167/88 (114) 97 03/28/19 04:00 98.1 80 17 146/84 (104) 95 03/28/19 00:00 98.6 83 17 138/74 (95) 95 03/27/19 21:00 Room Air 03/27/19 20:00 98.0 84 15 143/87 (105) 95 Intake and Output 03/27/19 03/28/19 19:00 07:00 Intake Total 475 ml 1092.5 ml Output Total 450 ml 550 ml Balance 25 ml 542.5 ml Intake Oral 475 ml 600 ml IV Total 492.5 ml Output Urine Total 450 ml 550 ml Laboratory Tests 03/28/19 04:45: White Blood Count 14.2H, Red Blood Count 4.41L, Hemoglobin 13.8L, Hematocrit 37.2L, Mean Corpuscular Volume 84, Mean Corpuscular Hemoglobin 31.3H, Mean Corpuscular Hemoglobin Concent 37.0H, Red Cell Distribution Width 12.7, Platelet Count 152, Mean Platelet Volume 6.2L, Neutrophils (%) (Auto) 71.9, Lymphocytes (%) (Auto) 15.8L, Monocytes (%) (Auto) 10.1H, Eosinophils (%) (Auto ) 1.5, Basophils (%) (Auto) 0.7, Sodium Level 141, Potassium Level 3.8, Chloride Level 107, Carbon Dioxide Level 25, Anion Gap 9, Blood Urea Nitrogen 18 , Creatinine 1.1, Estimat Glomerular Filtration Rate > 60, Glucose Level 122H, Calcium Level 8.1L, Phosphorus Level 3.5, Magnesium Level 1.7L, Total Bilirubin 0.5, Aspartate Amino Transf (AST/SGOT) 18, Alanine Aminotransferase (ALT/SGPT) 30, Alkaline Phosphatase 64, Total Protein 6.4, Albumin 2.5L, Globulin 3.9, Albumin/Globulin Ratio 0.6L Height (Feet): 5 Height (Inches): 4.00 Weight (Pounds): 192 Objective WDWN NCAT supple CTA RRR Abd soft ND NT no edema Margot Calixto MD Mar 28, 2019 17:44
--- NOTE | 2019-03-28 19:02 | NUR ---
NURSE NOTES: Received report from Syl SMITH. Patient is a/o x4, awake, in bed. Patient able to known his needs and verbally responsive. No c/o chest pain or any distress noted at this time. IV site is intact and patent. Swanson cath in place draining to gravity. Bed is on alarm, locked, lowest position. Call light within reach. Will continue to monitor.
--- NOTE | 2019-03-28 19:37 | NUR ---
HAND-OFF: Report given to Kwabena SMITH, pt in stable condition. - During my shift pt was able to ambulate around the room with steady gait. I&O's Swanson cath: 900ml
[2019-03-28 20:00] VITALS: BP 160/93
--- NOTE | 2019-03-28 20:11 | NUR ---
NURSE NOTES: patient's BP 1st 160/93, HR 87 on Lt arm, 2nd 154/95, 84. Patient stated that he is taking hypertension medication at home; amlodipine-atorvastatin 10-20mg, Benazepril/Hctz 20-12.5mg. NO hypertension medication ordered on eMAR. Called to Dr. Dumont and left message.
--- NOTE | 2019-03-28 20:35 | NUR ---
NURSE NOTES: received call back from Dr. Dumont and Carried out order.
[2019-03-28] MEDS: hydroCHLOROthiazide 12.5mg TAB ORAL SCH (20:48)
[2019-03-28] MEDS: Tamsulosin 0.4mg cap ORAL SCH (20:48)
[2019-03-28] MEDS: Benazepril 10mg tab ORAL SCH (20:49)
--- NOTE | 2019-03-28 21:09 | Cardiology Progress Note ---
Assessment/Plan Assessment/Plan The patient is seen and examined, full consult note will be dictated shortly. Objective Last 24 Hour Vital Signs Date Time Temp Pulse Resp B/P (MAP) Pulse Ox O2 Delivery O2 Flow Rate FiO2 03/28/19 20:49 160/93 03/28/19 20:48 87 160/93 03/28/19 16:00 98.2 82 17 158/95 (116) 96 03/28/19 11:43 98.6 81 18 142/95 (111) 96 03/28/19 09:00 Room Air 03/28/19 08:00 98.5 97 20 167/88 (114) 97 03/28/19 04:00 98.1 80 17 146/84 (104) 95 03/28/19 00:00 98.6 83 17 138/74 (95) 95 Intake and Output 03/27/19 03/28/19 19:00 07:00 Intake Total 475 ml 1092.5 ml Output Total 450 ml 550 ml Balance 25 ml 542.5 ml Intake Oral 475 ml 600 ml IV Total 492.5 ml Output Urine Total 450 ml 550 ml Laboratory Tests Test 03/28/19 04:45 White Blood Count 14.2 K/UL (4.8-10.8) H Red Blood Count 4.41 M/UL (4.70-6.10) L Hemoglobin 13.8 G/DL (14.2-18.0) L Hematocrit 37.2 % (42.0-52.0) L Mean Corpuscular Volume 84 FL (80-99) Mean Corpuscular Hemoglobin 31.3 PG (27.0-31.0) H Mean Corpuscular Hemoglobin Concent 37.0 G/DL (32.0-36.0) H Red Cell Distribution Width 12.7 % (11.6-14.8) Platelet Count 152 K/UL (150-450) Mean Platelet Volume 6.2 FL (6.5-10.1) L Neutrophils (%) (Auto) 71.9 % (45.0-75.0) Lymphocytes (%) (Auto) 15.8 % (20.0-45.0) L Monocytes (%) (Auto) 10.1 % (1.0-10.0) H Eosinophils (%) (Auto) 1.5 % (0.0-3.0) Basophils (%) (Auto) 0.7 % (0.0-2.0) Sodium Level 141 MMOL/L (136-145) Potassium Level 3.8 MMOL/L (3.5-5.1) Chloride Level 107 MMOL/L (98-107) Carbon Dioxide Level 25 MMOL/L (21-32) Anion Gap 9 mmol/L (5-15) Blood Urea Nitrogen 18 mg/dL (7-18) Creatinine 1.1 MG/DL (0.55-1.30) Estimat Glomerular Filtration Rate > 60 mL/min (>60) Glucose Level 122 MG/DL (74-106) H Calcium Level 8.1 MG/DL (8.5-10.1) L Phosphorus Level 3.5 MG/DL (2.5-4.9) Magnesium Level 1.7 MG/DL (1.8-2.4) L Total Bilirubin 0.5 MG/DL (0.2-1.0) Aspartate Amino Transf (AST/SGOT) 18 U/L (15-37) Alanine Aminotransferase (ALT/SGPT) 30 U/L (12-78) Alkaline Phosphatase 64 U/L (46-116) Total Protein 6.4 G/DL (6.4-8.2) Albumin 2.5 G/DL (3.4-5.0) L Globulin 3.9 g/dL Albumin/Globulin Ratio 0.6 (1.0-2.7) L Microbiology Date/Time Source Procedure Growth Status 03/26/19 00:30 Blood Blood Culture - Preliminary NO GROWTH AFTER 48 HOURS Resulted 03/26/19 00:15 Blood Blood Culture - Preliminary NO GROWTH AFTER 48 HOURS Resulted 03/26/19 00:15 Nasal Nares - Final Complete 03/26/19 00:15 Nasal Nares - Final Complete 03/26/19 00:15 Urine,Clean Catch Urine Culture - Preliminary Escherichia Coli Resulted David Dumont MD Mar 28, 2019 21:09
--- NOTE | 2019-03-28 21:31 | General Progress Note ---
Assessment/Plan Problem List: (1) Gastritis ICD Codes: K29.70 - Gastritis, unspecified, without bleeding SNOMED: 1056210 (2) Low back pain ICD Codes: M54.5 - Low back pain SNOMED: 968542608 (3) Constipation ICD Codes: K59.00 - Constipation, unspecified SNOMED: 90070446 (4) Leukocytosis ICD Codes: D72.829 - Elevated white blood cell count, unspecified SNOMED: 485562850, 398808053 Qualifiers: Qualified Codes: D72.829 - Elevated white blood cell count, unspecified (5) UTI (urinary tract infection) ICD Codes: N39.0 - Urinary tract infection, site not specified SNOMED: 13828648 Qualifiers: Qualified Codes: N30.01 - Acute cystitis with hematuria (6) Urinary retention ICD Codes: R33.9 - Retention of urine, unspecified SNOMED: 103527719 Status: progressing Assessment/Plan: had bustos in will go to snf w bustos and iv abx for urinary retention arf uti afebrile iv abx for uti Subjective ROS Limited/Unobtainable: Yes Allergies: Coded Allergies: No Known Allergies (Unverified , 04/21/16) Objective Last 24 Hour Vital Signs Date Time Temp Pulse Resp B/P (MAP) Pulse Ox O2 Delivery O2 Flow Rate FiO2 03/28/19 21:00 Room Air 03/28/19 20:49 160/93 03/28/19 20:48 87 160/93 03/28/19 20:00 99.4 87 17 160/93 (115) 94 03/28/19 16:00 98.2 82 17 158/95 (116) 96 03/28/19 11:43 98.6 81 18 142/95 (111) 96 03/28/19 09:00 Room Air 03/28/19 08:00 98.5 97 20 167/88 (114) 97 03/28/19 04:00 98.1 80 17 146/84 (104) 95 03/28/19 00:00 98.6 83 17 138/74 (95) 95 Intake and Output 03/27/19 03/28/19 19:00 07:00 Intake Total 475 ml 1092.5 ml Output Total 450 ml 550 ml Balance 25 ml 542.5 ml Intake Oral 475 ml 600 ml IV Total 492.5 ml Output Urine Total 450 ml 550 ml Laboratory Tests 03/28/19 04:45: White Blood Count 14.2H, Red Blood Count 4.41L, Hemoglobin 13.8L, Hematocrit 37.2L, Mean Corpuscular Volume 84, Mean Corpuscular Hemoglobin 31.3H, Mean Corpuscular Hemoglobin Concent 37.0H, Red Cell Distribution Width 12.7, Platelet Count 152, Mean Platelet Volume 6.2L, Neutrophils (%) (Auto) 71.9, Lymphocytes (%) (Auto) 15.8L, Monocytes (%) (Auto) 10.1H, Eosinophils (%) (Auto ) 1.5, Basophils (%) (Auto) 0.7, Sodium Level 141, Potassium Level 3.8, Chloride Level 107, Carbon Dioxide Level 25, Anion Gap 9, Blood Urea Nitrogen 18 , Creatinine 1.1, Estimat Glomerular Filtration Rate > 60, Glucose Level 122H, Calcium Level 8.1L, Phosphorus Level 3.5, Magnesium Level 1.7L, Total Bilirubin 0.5, Aspartate Amino Transf (AST/SGOT) 18, Alanine Aminotransferase (ALT/SGPT) 30, Alkaline Phosphatase 64, Total Protein 6.4, Albumin 2.5L, Globulin 3.9, Albumin/Globulin Ratio 0.6L Height (Feet): 5 Height (Inches): 4.00 Weight (Pounds): 192 Cardiovascular: normal rate Respiratory/Chest: lungs clear Abdomen: soft Master Perez MD Mar 28, 2019 21:31
[2019-03-29] VITALS: BP 143/78
[2019-03-29] MEDS: Acetaminophen 500mg (ES) tab ORAL PRN (00:12)
[2019-03-29] MEDS: cefTRIAXone 1 GM in D5W 55 ML IVPB SCH (01:46)
[2019-03-29 04:00] VITALS: BP 155/81
--- NOTE | 2019-03-29 07:16 | NUR ---
HAND-OFF: Report given to Valeri SMITH. Patient in stable condition.
[2019-03-29 07:42] LABS: BASOPHILS % (AUTO) 1.1 % (0.0-2.0); EOSINOPHILS % (AUTO) 1.4 % (0.0-3.0); HEMATOCRIT 36.9 % (42.0-52.0); HEMOGLOBIN 13.9 G/DL (14.2-18.0); LYMPHOCYTES % (AUTO) 16.5 % (20.0-45.0); MEAN CORPUSCULAR VOLUME 84 FL (80-99); MONOCYTES % (AUTO) 9.5 % (1.0-10.0); NEUTROPHILS % (AUTO) 71.6 % (45.0-75.0); PLATELET COUNT 150 K/UL (150-450); RED BLOOD COUNT 4.37 M/UL (4.70-6.10); RED CELL DISTRIBUTION WIDTH 12.9 % (11.6-14.8); WHITE BLOOD COUNT 14.1 K/UL (4.8-10.8)
[2019-03-29 07:57] VITALS: BP 155/89
[2019-03-29] MEDS: Benazepril 10mg tab ORAL SCH (08:45)
[2019-03-29] MEDS: Bisacodyl EC 5mg tab ORAL SCH (08:46)
[2019-03-29] MEDS: hydroCHLOROthiazide 12.5mg TAB ORAL SCH (08:46)
[2019-03-29] MEDS: Docusate 100mg cap ORAL SCH ×2 (08:46→12:33)
--- NOTE | 2019-03-29 09:18 | NUR ---
DISCHARGE PLANNING: CM PATIENT CARE NOTIFIED FROM RN BENNIE PER DR. LO PLEASE FIND RETIREMENT PLACEMENT CM TO CONTACT [facility] KRAMER:[phone] DISCUSSED PLACEMENT NEEDS CLINICALS WILL BE FAXED SNF PACKET WILL BE SENT
--- NOTE | 2019-03-29 09:35 | NUR ---
CASE MANAGEMENT: REVIEW 03/29/2019 SI:SEPSIS WITH LEUKOCYTOSIS . ECOLI UTI . URINE RETENTION . LOW BACK PAIN 101.1 97 19 143/78 95 % ON RA WBC 14.1 IS:IV ROCEPHIN Q24HR PROTONIX PO QD FLOMAX PO QHS TYLENOL PO Q6HR/PRN IV KPHOS X2 BAGS NORVASC PO QD HYDRODIURIL PO QD LOTENSIN PO QD \: 3E MED SURG UNIT PLAN: PLACEMENT PLAN: PATIENT TO DC WITH SORIANO CATH AND IV ABX CONTROL FEVERS MAG SULFATE INFUSION X4 BAGS 03/28/19- STILL RUNNING PLACEMENT OF COUDE CATHETER URINE CX-PENDING BLOOD CX-PENDING CONTROL VOMITING
--- NOTE | 2019-03-29 09:56 | NUR ---
CASE MANAGEMENT:NOTE REVIEWS SENT TO INSURANCE F:[phone] SNF PACKET SENT TO [facility] FOR SNF PLACEMENT F:[phone] WILL F/U
[2019-03-29 10:03] LABS: ANION GAP 6 mmol/L (5-15); BLOOD UREA NITROGEN 10 mg/dL (7-18); CALCIUM 8.5 MG/DL (8.5-10.1); CARBON DIOXIDE 28 MMOL/L (21-32); CHLORIDE 104 MMOL/L (98-107); CREATININE 1.1 MG/DL (0.55-1.30); POTASSIUM 3.3 MMOL/L (3.5-5.1); SODIUM 138 MMOL/L (136-145)
[2019-03-29 10:08] LABS: ALANINE AMINOTRANSFERASE 34 U/L (12-78); ALBUMIN 2.7 G/DL (3.4-5.0); ALBUMIN/GLOBULIN RATIO 0.7 (1.0-2.7); ALKALINE PHOSPHATASE 68 U/L (46-116); ASPARTATE AMINO TRANSFERASE 17 U/L (15-37); BILIRUBIN,TOTAL 0.6 MG/DL (0.2-1.0)
--- NOTE | 2019-03-29 11:20 | Nephrology Progress Note ---
Assessment/Plan Problem List: (1) Urinary retention (2) Leukocytosis (3) UTI (urinary tract infection) Assessment Urinary Retention UTI / Leukocytosis Bibasilar Atx Electrolyte Imbalance Plan K supplement TODAY'S LABS reviewed Uro eval done correct lytes Flomax monitor renal parameters fish oil for high Trygs Subjective ROS Limited/Unobtainable: No Constitutional: Reports: malaise Objective Objective Last 24 Hour Vital Signs Date Time Temp Pulse Resp B/P (MAP) Pulse Ox O2 Delivery O2 Flow Rate FiO2 03/29/19 09:29 Room Air 03/29/19 08:46 86 155/89 03/29/19 08:45 155/89 03/29/19 07:57 98.3 86 18 155/89 (111) 96 03/29/19 04:00 99.5 97 18 155/81 (105) 88 03/29/19 00:42 99.7 03/29/19 00:00 101.0 97 19 143/78 (99) 95 03/28/19 21:00 Room Air 03/28/19 20:49 160/93 03/28/19 20:48 87 160/93 03/28/19 20:00 99.4 87 17 160/93 (115) 94 03/28/19 16:00 98.2 82 17 158/95 (116) 96 03/28/19 11:43 98.6 81 18 142/95 (111) 96 Intake and Output 03/28/19 03/29/19 19:00 07:00 Intake Total 1200 ml 455 ml Output Total 900 ml 1900 ml Balance 300 ml -1445 ml Intake Oral 1200 ml 400 ml IV Total 55 ml Output Urine Total 900 ml 1900 ml Laboratory Tests 03/29/19 05:50: Sodium Level 138, Potassium Level 3.3L, Chloride Level 104, Carbon Dioxide Level 28, Anion Gap 6, Blood Urea Nitrogen 10, Creatinine 1.1, Estimat Glomerular Filtration Rate > 60, Glucose Level 127H, Calcium Level 8.5, Total Bilirubin 0.6, Aspartate Amino Transf (AST/SGOT) 17, Alanine Aminotransferase ( ALT/SGPT) 34, Alkaline Phosphatase 68, Total Protein 6.8, Albumin 2.7L, Globulin 4.1, Albumin/Globulin Ratio 0.7L 03/29/19 05:52: White Blood Count 14.1H, Red Blood Count 4.37L, Hemoglobin 13.9L, Hematocrit 36.9L, Mean Corpuscular Volume 84, Mean Corpuscular Hemoglobin 31.7H, Mean Corpuscular Hemoglobin Concent 37.6H, Red Cell Distribution Width 12.9, Platelet Count 150, Mean Platelet Volume 5.1L, Neutrophils (%) (Auto) 71.6, Lymphocytes (%) (Auto) 16.5L, Monocytes (%) (Auto) 9.5, Eosinophils (%) (Auto) 1.4, Basophils (%) (Auto) 1.1 Height (Feet): 5 Height (Inches): 4.00 Weight (Pounds): 190 General Appearance: no apparent distress Cardiovascular: normal rate Respiratory/Chest: lungs clear Abdomen: soft Objective no change Richard Crews MD Mar 29, 2019 11:20
[2019-03-29 11:56] LABS: PHOSPHORUS 3.3 MG/DL (2.5-4.9)
[2019-03-29 12:00] VITALS: BP 157/84
--- NOTE | 2019-03-29 12:11 | NUR ---
DISCHARGE PLANNED: DISCUSSED PLACEMENT AT BEDSIDE WITH PATIENT PATIENT IS AGREEABLE TO DISCHARGE TO LONGTERM FACILITY [facility]. HAS ACCEPTED T: [phone] FOR NURSE TO NURSE REPORT ROOM# 1A [facility] PICKUP TIME AUTHORIZATION FOR SNF PLACEMENT#[id number] CONFIRMED BY NIA ERVIN T: [phone] EXT 1886
--- NOTE | 2019-03-29 12:47 | Infectious Diseases Prog Note ---
Assessment/Plan Assessment/Plan IMPRESSION: Sepsis with leukocytosis and tachycardia;improving E. coli UTI. Urinary retention, upper respiratory symptoms, hypertension, hyperlipidemia. Fatty liver RECOMMENDATION: Continue Rocephin at least for 3 days Subjective ROS Limited/Unobtainable: No Constitutional: Reports: fever, other - T [id number] HEENT: Reports: no symptoms Respiratory: Reports: no symptoms Cardiovascular: Reports: no symptoms Genitourinary: Reports: no symptoms Allergies: Coded Allergies: No Known Allergies (Unverified , 04/21/16) Objective Vital Signs Last 24 Hour Vital Signs Date Time Temp Pulse Resp B/P (MAP) Pulse Ox O2 Delivery O2 Flow Rate FiO2 03/29/19 09:29 Room Air 03/29/19 08:46 86 155/89 03/29/19 08:45 155/89 03/29/19 07:57 98.3 86 18 155/89 (111) 96 03/29/19 04:00 99.5 97 18 155/81 (105) 88 03/29/19 00:42 99.7 03/29/19 00:00 101.0 97 19 143/78 (99) 95 03/28/19 21:00 Room Air 03/28/19 20:49 160/93 03/28/19 20:48 87 160/93 03/28/19 20:00 99.4 87 17 160/93 (115) 94 03/28/19 16:00 98.2 82 17 158/95 (116) 96 Height (Feet): 5 Height (Inches): 4.00 Weight (Pounds): 190 General Appearance: no acute distress HEENT: mucous membranes moist Respiratory/Chest: lungs clear Cardiovascular: normal rate Abdomen: soft, non tender Genitourinary: other - Swanson catheter Extremities: no edema Neurologic/Psychiatric: alert, oriented x 3, responsive Laboratory Tests Test 03/29/19 05:50 03/29/19 05:52 Sodium Level 138 MMOL/L (136-145) Potassium Level 3.3 MMOL/L (3.5-5.1) L Chloride Level 104 MMOL/L (98-107) Carbon Dioxide Level 28 MMOL/L (21-32) Anion Gap 6 mmol/L (5-15) Blood Urea Nitrogen 10 mg/dL (7-18) Creatinine 1.1 MG/DL (0.55-1.30) Estimat Glomerular Filtration Rate > 60 mL/min (>60) Glucose Level 127 MG/DL (74-106) H Calcium Level 8.5 MG/DL (8.5-10.1) Phosphorus Level 3.3 MG/DL (2.5-4.9) Magnesium Level 2.3 MG/DL (1.8-2.4) Total Bilirubin 0.6 MG/DL (0.2-1.0) Aspartate Amino Transf (AST/SGOT) 17 U/L (15-37) Alanine Aminotransferase (ALT/SGPT) 34 U/L (12-78) Alkaline Phosphatase 68 U/L (46-116) Total Protein 6.8 G/DL (6.4-8.2) Albumin 2.7 G/DL (3.4-5.0) L Globulin 4.1 g/dL Albumin/Globulin Ratio 0.7 (1.0-2.7) L White Blood Count 14.1 K/UL (4.8-10.8) H Red Blood Count 4.37 M/UL (4.70-6.10) L Hemoglobin 13.9 G/DL (14.2-18.0) L Hematocrit 36.9 % (42.0-52.0) L Mean Corpuscular Volume 84 FL (80-99) Mean Corpuscular Hemoglobin 31.7 PG (27.0-31.0) H Mean Corpuscular Hemoglobin Concent 37.6 G/DL (32.0-36.0) H Red Cell Distribution Width 12.9 % (11.6-14.8) Platelet Count 150 K/UL (150-450) Mean Platelet Volume 5.1 FL (6.5-10.1) L Neutrophils (%) (Auto) 71.6 % (45.0-75.0) Lymphocytes (%) (Auto) 16.5 % (20.0-45.0) L Monocytes (%) (Auto) 9.5 % (1.0-10.0) Eosinophils (%) (Auto) 1.4 % (0.0-3.0) Basophils (%) (Auto) 1.1 % (0.0-2.0) Current Medications Medications (Trade) Dose Ordered Sig/Selma Route PRN Reason Start Time Stop Time Status Last Admin Dose Admin Acetaminophen (Tylenol) 500 mg Q6H PRN ORAL Mild Pain/Temp > 100.5 03/26/19 08:30 04/25/19 08:29 03/29/19 00:12 Amlodipine Besylate (Norvasc) 10 mg DAILY ORAL 03/28/19 21:00 04/27/19 20:59 03/29/19 08:46 Benazepril HCl (Lotensin) 20 mg Q12HR ORAL 03/29/19 21:00 04/28/19 20:59 Bisacodyl (Dulcolax) 10 mg DAILY ORAL 03/26/19 09:00 04/25/19 08:59 03/29/19 08:46 Ceftriaxone Sodium 1 gm/ Dextrose 55 ml @ 110 mls/hr Q24H IVPB 03/27/19 02:00 04/03/19 01:59 03/29/19 01:46 Clonidine HCl (Catapres Tab) 0.1 mg Q8H PRN ORAL FOR SBP >160 03/28/19 20:30 04/27/19 20:29 Docusate Sodium (Colace) 100 mg TID ORAL 03/26/19 13:00 04/25/19 08:59 03/29/19 08:46 Fish Oil (Fish Oil) 1,000 mg BID ORAL 03/28/19 18:00 04/27/19 17:59 03/29/19 08:45 Hydrochlorothiazide (Hydrodiuril) 12.5 mg DAILY ORAL 03/28/19 21:00 04/27/19 20:59 03/29/19 08:46 Ondansetron HCl (Zofran) 4 mg Q6H PRN IVP Nausea & Vomiting 03/26/19 08:30 04/25/19 08:29 Pantoprazole (Protonix) 40 mg DAILY ORAL 03/26/19 09:00 04/25/19 08:59 03/29/19 08:46 Potassium Chloride (K-Dur) 40 meq DAILY ORAL 03/30/19 09:00 04/29/19 08:59 Tamsulosin HCl (Flomax) 0.4 mg BEDTIME ORAL 03/27/19 21:00 04/26/19 20:59 03/28/19 20:48 Tramadol HCl (Ultram) 50 mg Q8H PRN ORAL moderate pain 03/28/19 06:15 04/04/19 06:14 Sabino Dawkins MD Mar 29, 2019 12:47
[2019-03-29] MEDS ORDERED: AMLODIPINE BESY10 MG ORAL (13:04)
[2019-03-29] MEDS ORDERED: BENAZEPRIL HCL20 MG ORAL (13:05)
[2019-03-29] MEDS ORDERED: BISACODYL5 MG ORAL (13:06)
[2019-03-29] MEDS ORDERED: COLACE100 MG ORAL (13:08)
[2019-03-29] MEDS ORDERED: FISH OIL CAP1000 MG ORAL (13:09)
[2019-03-29] MEDS ORDERED: HYDROCHLOROTH12.5 MG ORAL (13:12)
[2019-03-29] MEDS ORDERED: PROTONIX40 MG ORAL (13:17)
[2019-03-29] MEDS ORDERED: POTASSIUM CHLO20 ME1 ORAL (13:18)
[2019-03-29] MEDS ORDERED: FLOMAX0.4 MG ORAL (13:19)
[2019-03-29] MEDS ORDERED: ROCEPHIN250 MG IVP (13:21)
[2019-03-29] MEDS ORDERED: ACETAMINOPHEN120 MG PO (13:22)
[2019-03-29] MEDS ORDERED: CLONIDINE0.1 MG PO (13:24)
[2019-03-29] MEDS ORDERED: TRAMADOL HCL50 MG ORAL (13:25)
--- NOTE | 2019-03-29 14:25 | Hematology/Onc Progress Note ---
Assessment/Plan Assessment/Plan Assessment and Recs # Leukocytosis -- likely is related to urinary obstruction, uti --> has been started on abx CTX --> as per ID care --> s/p bustos placement/insertion -_> wbc 22-->14 # Thrombocytopenia likely due to underlying infection --> hepatitis and hiv have been ordered --> imaging has been noted --> plt trend 133-->121k-->152 # Hypokalemia --> has been given Kcl # Acute cystitis with hematuria --> is s/p ivf # Tachycardia --> likely due to above uti # Superimposed infiltrates bilaterally, will start ceftriaxone --> on abx --> per id recs Appreciate consultation and jesi Rn Subjective HEENT: Denies: no symptoms, eye pain, blurred vision, tearing, double vision, ear pain, ear discharge, nose pain, nose congestion, throat pain, throat swelling, mouth pain, mouth swelling, other Respiratory: Denies: no symptoms, cough, shortness of breath, SOB with excertion, SOB at rest, sputum, wheezing, other Neurologic/Psychiatric: Denies: no symptoms, anxiety, depressed, emotional problems, headache, numbness, paresthesia, pre-existing deficit, seizure, tingling, tremors, weakness, other Endocrine: Denies: no symptoms, excessive sweating, flushing, intolerance to cold, intolerance to heat, increased hunger, increased thirst, increased urine, unexplained weight gain, unexplained weight loss, other Hematologic/Lymphatic: Denies: no symptoms, anemia, easy bleeding, easy bruising, adenopathy, other Allergies: Coded Allergies: No Known Allergies (Unverified , 04/21/16) Subjective 2: no bleeding, no f/c, no events, no night sweats 2: no night sweats, labs reviewed, no major bleeding 2: no major changes, no bleeding, labs have been reviewed Objective Objective Current Medications Medications (Trade) Dose Ordered Sig/Selma Route PRN Reason Start Time Stop Time Status Last Admin Dose Admin Acetaminophen (Tylenol) 500 mg Q6H PRN ORAL Mild Pain/Temp > 100.5 03/26/19 08:30 04/25/19 08:29 03/29/19 00:12 Amlodipine Besylate (Norvasc) 10 mg DAILY ORAL 03/28/19 21:00 3/5/20 20:59 03/29/19 08:46 Benazepril HCl (Lotensin) 20 mg Q12HR ORAL 03/29/19 21:00 04/28/19 20:59 Bisacodyl (Dulcolax) 10 mg DAILY ORAL 03/26/19 09:00 04/25/19 08:59 03/29/19 08:46 Ceftriaxone Sodium 1 gm/ Dextrose 55 ml @ 110 mls/hr Q24H IVPB 03/27/19 02:00 04/03/19 01:59 03/29/19 01:46 Clonidine HCl (Catapres Tab) 0.1 mg Q8H PRN ORAL FOR SBP >160 03/28/19 20:30 04/27/19 20:29 Docusate Sodium (Colace) 100 mg TID ORAL 03/26/19 13:00 04/25/19 08:59 03/29/19 08:46 Fish Oil (Fish Oil) 1,000 mg BID ORAL 03/28/19 18:00 04/27/19 17:59 03/29/19 08:45 Hydrochlorothiazide (Hydrodiuril) 12.5 mg DAILY ORAL 03/28/19 21:00 04/27/19 20:59 03/29/19 08:46 Ondansetron HCl (Zofran) 4 mg Q6H PRN IVP Nausea & Vomiting 03/26/19 08:30 04/25/19 08:29 Pantoprazole (Protonix) 40 mg DAILY ORAL 03/26/19 09:00 04/25/19 08:59 03/29/19 08:46 Potassium Chloride (K-Dur) 40 meq DAILY ORAL 03/30/19 09:00 04/29/19 08:59 Tamsulosin HCl (Flomax) 0.4 mg BEDTIME ORAL 03/27/19 21:00 04/26/19 20:59 03/28/19 20:48 Tramadol HCl (Ultram) 50 mg Q8H PRN ORAL moderate pain 03/28/19 06:15 04/04/19 06:14 Last 24 Hour Vital Signs Date Time Temp Pulse Resp B/P (MAP) Pulse Ox O2 Delivery O2 Flow Rate FiO2 03/29/19 09:29 Room Air 03/29/19 08:46 86 155/89 03/29/19 08:45 155/89 03/29/19 07:57 98.3 86 18 155/89 (111) 96 03/29/19 04:00 99.5 97 18 155/81 (105) 88 03/29/19 00:42 99.7 03/29/19 00:00 101.0 97 19 143/78 (99) 95 03/28/19 21:00 Room Air 03/28/19 20:49 160/93 03/28/19 20:48 87 160/93 03/28/19 20:00 99.4 87 17 160/93 (115) 94 03/28/19 16:00 98.2 82 17 158/95 (116) 96 03/28/19 11:43 98.6 81 18 142/95 (111) 96 03/28/19 09:00 Room Air 03/28/19 08:00 98.5 97 20 167/88 (114) 97 03/28/19 04:00 98.1 80 17 146/84 (104) 95 03/28/19 00:00 98.6 83 17 138/74 (95) 95 03/27/19 21:00 Room Air 03/27/19 20:00 98.0 84 15 143/87 (105) 95 03/27/19 16:00 98.8 82 20 137/87 (104) 98 Intake and Output 03/28/19 03/29/19 19:00 07:00 Intake Total 1200 ml 455 ml Output Total 900 ml 1900 ml Balance 300 ml -1445 ml Intake Oral 1200 ml 400 ml IV Total 55 ml Output Urine Total 900 ml 1900 ml Labs Test 03/27/19 10:15 03/28/19 04:45 03/29/19 05:50 03/29/19 05:52 White Blood Count 21.9 K/UL (4.8-10.8) 14.2 K/UL (4.8-10.8) 14.1 K/UL (4.8-10.8) Red Blood Count 4.73 M/UL (4.70-6.10) 4.41 M/UL (4.70-6.10) 4.37 M/UL (4.70-6.10) Hemoglobin 14.9 G/DL (14.2-18.0) 13.8 G/DL (14.2-18.0) 13.9 G/DL (14.2-18.0) Hematocrit 40.3 % (42.0-52.0) 37.2 % (42.0-52.0) 36.9 % (42.0-52.0) Mean Corpuscular Volume 85 FL (80-99) 84 FL (80-99) 84 FL (80-99) Mean Corpuscular Hemoglobin 31.6 PG (27.0-31.0) 31.3 PG (27.0-31.0) 31.7 PG (27.0-31.0) Mean Corpuscular Hemoglobin Concent 37.0 G/DL (32.0-36.0) 37.0 G/DL (32.0-36.0) 37.6 G/DL (32.0-36.0) Red Cell Distribution Width 12.4 % (11.6-14.8) 12.7 % (11.6-14.8) 12.9 % (11.6-14.8) Platelet Count 148 K/UL (150-450) 152 K/UL (150-450) 150 K/UL (150-450) Mean Platelet Volume 6.2 FL (6.5-10.1) 6.2 FL (6.5-10.1) 5.1 FL (6.5-10.1) Neutrophils (%) (Auto) % (45.0-75.0) 71.9 % (45.0-75.0) 71.6 % (45.0-75.0) Lymphocytes (%) (Auto) % (20.0-45.0) 15.8 % (20.0-45.0) 16.5 % (20.0-45.0) Monocytes (%) (Auto) % (1.0-10.0) 10.1 % (1.0-10.0) 9.5 % (1.0-10.0) Eosinophils (%) (Auto) % (0.0-3.0) 1.5 % (0.0-3.0) 1.4 % (0.0-3.0) Basophils (%) (Auto) % (0.0-2.0) 0.7 % (0.0-2.0) 1.1 % (0.0-2.0) Differential Total Cells Counted 100 Neutrophils % (Manual) 83 % (45-75) Lymphocytes % (Manual) 9 % (20-45) Monocytes % (Manual) 8 % (1-10) Eosinophils % (Manual) 0 % (0-3) Basophils % (Manual) 0 % (0-2) Band Neutrophils 0 % (0-8) Platelet Estimate Decreased Platelet Morphology Normal Red Blood Cell Morphology Normal Sodium Level 139 MMOL/L (136-145) 141 MMOL/L (136-145) 138 MMOL/L (136-145) Potassium Level 3.5 MMOL/L (3.5-5.1) 3.8 MMOL/L (3.5-5.1) 3.3 MMOL/L (3.5-5.1) Chloride Level 106 MMOL/L (98-107) 107 MMOL/L (98-107) 104 MMOL/L (98-107) Carbon Dioxide Level 26 MMOL/L (21-32) 25 MMOL/L (21-32) 28 MMOL/L (21-32) Anion Gap 7 mmol/L (5-15) 9 mmol/L (5-15) 6 mmol/L (5-15) Blood Urea Nitrogen 18 mg/dL (7-18) 18 mg/dL (7-18) 10 mg/dL (7-18) Creatinine 1.1 MG/DL (0.55-1.30) 1.1 MG/DL (0.55-1.30) 1.1 MG/DL (0.55-1.30) Estimat Glomerular Filtration Rate > 60 mL/min (>60) > 60 mL/min (>60) > 60 mL/min (>60) Glucose Level 153 MG/DL (74-106) 122 MG/DL (74-106) 127 MG/DL (74-106) Uric Acid 3.7 MG/DL (2.6-7.2) Calcium Level 8.9 MG/DL (8.5-10.1) 8.1 MG/DL (8.5-10.1) 8.5 MG/DL (8.5-10.1) Phosphorus Level 1.2 MG/DL (2.5-4.9) 3.5 MG/DL (2.5-4.9) 3.3 MG/DL (2.5-4.9) Magnesium Level 1.9 MG/DL (1.8-2.4) 1.7 MG/DL (1.8-2.4) 2.3 MG/DL (1.8-2.4) Total Bilirubin 0.5 MG/DL (0.2-1.0) 0.5 MG/DL (0.2-1.0) 0.6 MG/DL (0.2-1.0) Aspartate Amino Transf (AST/SGOT) 12 U/L (15-37) 18 U/L (15-37) 17 U/L (15-37) Alanine Aminotransferase (ALT/SGPT) 22 U/L (12-78) 30 U/L (12-78) 34 U/L (12-78) Alkaline Phosphatase 70 U/L (46-116) 64 U/L (46-116) 68 U/L (46-116) C-Reactive Protein, Quantitative 26.7 mg/dL (0.00-0.90) Pro-B-Type Natriuretic Peptide 171 pg/mL (0-125) Total Protein 7.2 G/DL (6.4-8.2) 6.4 G/DL (6.4-8.2) 6.8 G/DL (6.4-8.2) Albumin 2.8 G/DL (3.4-5.0) 2.5 G/DL (3.4-5.0) 2.7 G/DL (3.4-5.0) Globulin 4.4 g/dL 3.9 g/dL 4.1 g/dL Albumin/Globulin Ratio 0.6 (1.0-2.7) 0.6 (1.0-2.7) 0.7 (1.0-2.7) Triglycerides Level 411 MG/DL (30-150) Cholesterol Level 154 MG/DL (< 200) LDL Cholesterol 47 mg/dL (<100) HDL Cholesterol 8 MG/DL (40-60) Cholesterol/HDL Ratio 19.3 (3.3-4.4) Thyroid Stimulating Hormone (TSH) 0.735 uiU/mL (0.358-3.740) Height (Feet): 5 Height (Inches): 4.00 Weight (Pounds): 190 Objective Physical Exam General: well appearing, no apparent distress, alert Neck: supple, thyroid normal, supple Respiratory: lungs clear, no respiratory distress CV: normal peripheral pulses, no edema, no gallop Gastrointestinal: non tender, soft, no guarding, no rebound Musculoskeletal: normal inspection Neurologic: alert, oriented x3 Psychiatric: mood/affect normal Skin: no rash, warm/dry Vinnie Lane MD Mar 29, 2019 14:25
--- NOTE | 2019-03-29 15:04 | NUR ---
NURSE NOTES: DISCHARGED HOME TO [facility] VIA AMBULANCE IN STABLE CONDITION. TRANSFER PAPERS AND ORDERS SENT WITH PT. REPORT GIVEN TO ADAM SIMPSON.
--- NOTE | 2019-03-29 20:31 | General Progress Note ---
Assessment/Plan Status: progressing Assessment/Plan: Assessment - resolved vomiting - bladder outlet obstruction - leukocytosis Recommendations - po as toleratied - urology f/u - d/c planning Subjective Allergies: Coded Allergies: No Known Allergies (Unverified , 04/21/16) Subjective Better tolerating PO Objective Last 24 Hour Vital Signs Date Time Temp Pulse Resp B/P (MAP) Pulse Ox O2 Delivery O2 Flow Rate FiO2 03/29/19 12:00 99.5 100 20 157/84 (108) 93 03/29/19 09:29 Room Air 03/29/19 08:46 86 155/89 03/29/19 08:45 155/89 03/29/19 07:57 98.3 86 18 155/89 (111) 96 03/29/19 04:00 99.5 97 18 155/81 (105) 88 03/29/19 00:42 99.7 03/29/19 00:00 101.0 97 19 143/78 (99) 95 03/28/19 21:00 Room Air 03/28/19 20:49 160/93 03/28/19 20:48 87 160/93 Intake and Output 03/28/19 03/29/19 19:00 07:00 Intake Total 1200 ml 455 ml Output Total 900 ml 1900 ml Balance 300 ml -1445 ml Intake Oral 1200 ml 400 ml IV Total 55 ml Output Urine Total 900 ml 1900 ml Laboratory Tests 03/29/19 05:50: Sodium Level 138, Potassium Level 3.3L, Chloride Level 104, Carbon Dioxide Level 28, Anion Gap 6, Blood Urea Nitrogen 10, Creatinine 1.1, Estimat Glomerular Filtration Rate > 60, Glucose Level 127H, Calcium Level 8.5, Phosphorus Level 3.3, Magnesium Level 2.3, Total Bilirubin 0.6, Aspartate Amino Transf (AST/SGOT) 17, Alanine Aminotransferase (ALT/SGPT) 34, Alkaline Phosphatase 68, Total Protein 6.8, Albumin 2.7L, Globulin 4.1, Albumin/Globulin Ratio 0.7L 03/29/19 05:52: White Blood Count 14.1H, Red Blood Count 4.37L, Hemoglobin 13.9L, Hematocrit 36.9L, Mean Corpuscular Volume 84, Mean Corpuscular Hemoglobin 31.7H, Mean Corpuscular Hemoglobin Concent 37.6H, Red Cell Distribution Width 12.9, Platelet Count 150, Mean Platelet Volume 5.1L, Neutrophils (%) (Auto) 71.6, Lymphocytes (%) (Auto) 16.5L, Monocytes (%) (Auto) 9.5, Eosinophils (%) (Auto) 1.4, Basophils (%) (Auto) 1.1 Height (Feet): 5 Height (Inches): 4.00 Weight (Pounds): 190 Objective WDWN NCAT supple CTA RRR Abd soft ND NT no edema Margot Calixto MD Mar 29, 2019 20:31
[2019-03-29] MEDS ORDERED: Benazepril 10mg tab ORAL SCH (21:00)
--- NOTE | 2019-03-30 14:56 | NUR ---
*-* INSURANCE *-* ALL CLINICALS AND REVIEWS HAVE BEEN FAXED TO: [facility] no ref# yet # [phone] fax# [phone] Addendum: 03/30/19 at 1457 by ABHILASH WHIPPLE CM UNABLE TO SEND D/C SUMMARY NOT IN THE SYSTEM
--- NOTE | 2019-03-31 15:11 | NUR ---
*-* INSURANCE *-* UNABLE TO SEDN DISCAHRGE SUMMARY NOT IN THE SYSTEM
--- NOTE | 2019-04-03 14:58 | Discharge Summary ---
Discharge Summary Discharge Summary _ DATE OF ADMISSION: 03/26/2019 DATE OF DISCHARGE: 03/29/2019 DISCHARGED BY: Dr Perez REASON FOR ADMISSION: 53 years old male with past medical history of hypertension, hyperlipidemia, presented with fever and cough for 2 days. He reported shortness of breath with body aches. On evaluation patient was tachycardic and had low-grade fever. Laboratory work-up revealed significant leukocytosis WBC 23.4, stable hemoglobin and hematocrit. Urinalysis revealed +3 protein, +1 ketone, +1 bilirubin ,+3 leukocyte esterase, gross pyuria. Lactic acid 1.1. Glucose 139. Troponin negative , proBNP 184. Potassium 3.3 . EKG revealed sinus tachycardia , no acute ischemic changes. Chest x-ray revealed bibasilar linear atelectasis with possible mild superimposed infiltrate. Patient subsequently admitted for further management. CONSULTANTS: refrigeration specialist Dr. Dumont ID specialist Dr. Dawkins GI specialist Dr. Calixto Urologist Dr. Beckwith plaster maker Dr. Crews attendant sales/oncologist Dr. Lane HOSPITAL COURSE: Patient admitted and started on the IV fluids and empiric antibiotics, as per ID specialist recommendation. Urine culture revealed E. coli. Blood cultures were negative. Influenza swab was negative. Supplemental oxygen provided and titrated to keep oximetry above 92%. Bronchodilator treatment via HHN provided as needed. ID specialist recommended to continue antibiotics upon discharge for additional 3 more days to complete the course. Leukocytosis trending down , upon discharge WBC 14.1. Fevers resolved. Sinus tachycardia resolved with IV hydration, most likely was due to dehydration. Blood pressure was managed with calcium channel jason, MICHAEL inhibitor and hydrochlorothiazide. Clonidine was on board as needed for blood pressure spikes. GI specialist followed. Patient had episode of vomiting . Abdominal ultrasound demonstrated fatty liver. Gallbladder sludge and polyps. Urinary bladder was dilated and internal debris versus blood noted. Both kidneys were unremarkable. No hydronephrosis. Urology consult was requested. Scrotal and penile exam were normal , but patient declined prostate exam. Swanson catheter was placed with a 14 Divehi coud and left indwelling. Per urologist, patient had BPH with urinary retention . P atient started on Flomax. Urologist recommended to continue Swanson catheter for 7 days, considering retention. Patient to follow-up with urologist as outpatient with plan for cystoscopy and further studies later. Renal parameters and electrolytes were closely monitored. Electrolytes corrected as needed. Patient started on fish oil due to significantly elevated triglycerides 411. Pain management was addressed as needed. Supportive care provided. Patient was agreeable for discharge to [facility] facility for continuation of care. Placement was found and secured. Patient was stable for transfer to the [facility] facility for continuation of care . FINAL DIAGNOSES: Sepsis with leukocytosis and tachycardia E. coli UTI Upper respiratory symptoms Urinary retention Hypertension Hyperlipidemia Fatty liver Bladder outlet obstruction BPH with urinary retention DISCHARGE MEDICATIONS: See Medication Reconciliation list. DISCHARGE INSTRUCTIONS: Patient was discharged to the [facility] facility. Follow up with medical doctor at the facility. I have been assigned to dictate discharge summary for this account. I was not involved in the patient's management. Deanna Yoon NP Apr 03, 2019 14:58
--- NOTE | 2019-04-04 16:42 | NUR ---
*-* INSURANCE *-* DISCHARGE SUMMARY IN [facility] no ref# yet # [phone] fax# [phone]
--- NOTE | 2019-04-10 10:32 | CDS Physician Query ---
Clarification is required for compliance, coding accuracy, and to reflect severity of illness for this patient. Dear Dr. Sabino Dawkins Date: 04/10/2019 CDS: Lyubov Fish Clinical Documentation states: The patient comes in with urinary tract infection and was found to have urinary retention with bilateral pneumonia and hypokalemia. Admitted for those reasons...Urinary retention, UTI, hypokalemia, and pneumonia on the x-ray. CXR: Bibasilar linear atelectasis. Cannot exclude mild superimposed infiltrates Treatment: IV ceftriaxone A diagnosis of Pneumonia was made in the medical record. Upon review, it is difficult to determine whether this diagnosis has been ruled in, ruled out,or is still being worked up. Please indicate below the status of the aforementioned diagnosis. [] Treated and resolve [] Presumed and treated [] Currently under treatment [] Still being worked-up [] Ruled out Present on Admission: [] Yes [] No [] Clinically Undetermined Physician signature Date Please also document in your Progress Notes and/or Discharge Summary and indicate if the condition was present on admission. AYLEEN
== END 2019-03-29 15:05 | DRG 871 ==
LOC: EMR 03-26 01:50 → EDBEDREQ 03-26 03:14 → 3E 03-26 03:38
DX: A41.9 Sepsis, unspecified organism (principal); J18.9 Pneumonia, unspecified organism; N13.8 Other obstructive and reflux uropathy; N39.0 Urinary tract infection, site not specified; N40.1 Benign prostatic hyperplasia with lower urinary tract symptoms; R09.89 Other specified symptoms and signs involving the circulatory and respiratory systems; N32.0 Bladder-neck obstruction; R33.8 Other retention of urine; K21.9 Gastro-esophageal reflux disease without esophagitis; Z79.82 Long term (current) use of aspirin; E87.6 Hypokalemia; E78.5 Hyperlipidemia, unspecified; B96.20 Unspecified Escherichia coli [E. coli] as the cause of diseases classified elsewhere; K76.0 Fatty (change of) liver, not elsewhere classified; D69.6 Thrombocytopenia, unspecified
CPT/HCPCS: 36415; 71045; 76700; 80053; 80061; 81003; 83605; 83735; 83880; 84100; 84443; 84484; 84550; 85007; 85025; 86140; 86703; 86705; 86709; 86710; 86803; 87040; 87086; 87181; 87340; 93005; 96361; 96365; 99285; J7030; J8499